=== PATIENT | male | born 1950 | race African-American/Black ===

== ENCOUNTER 2016-05-03 10:59 | Observation (INO) | payer OTHER ==
[2016-05-03] MEDS ORDERED: IPRATROPIUM/ALBUTEROL 0.5-2.5 MG/3 ML AMPUL NEB ONE (11:13)
[2016-05-03] MEDS ORDERED: PREDNISONE 20 MG TABLET PO ONE (11:13)
--- NOTE | 2016-05-03 11:15 | ER Document Report ---
ED Medical Screen (RME) - General Stated Complaint: DIFFICULTY BREATHING Mode of Arrival: Wheelchair Information source: Patient Notes: Patient complains of difficulty breathing shortness of breath for the past 5 days. Patient states he feels as though his capacity out. Patient reports subjective fever at home. hx: COPD, hypertension, diabetes I have greeted and performed a rapid initial assessment of this patient. A comprehensive ED assessment and evaluation of the patient, analysis of test results and completion of the medical decision making process will be conducted by additional ED providers. TRAVEL OUTSIDE OF THE [place] IN LAST 30 DAYS: No - Related Data Allergies/Adverse Reactions: No Known Allergies Allergy (Verified 05/03/16 11:12) Past Medical History - Past Medical History Cardiac Medical History: Reports: Hx Coronary Artery Disease, Hx Hypercholesterolemia, Hx Hypertension, Hx Heart Murmur Denies: Hx Heart Attack Pulmonary Medical History: Reports: Hx Bronchitis, Hx Pneumonia Denies: Hx Asthma, Hx COPD, Hx Tuberculosis Neurological Medical History: Reports: Hx Cerebrovascular Accident, Hx Migraine - neuropathy. Denies: Hx Seizures Endocrine Medical History: Reports: Hx Diabetes Mellitus Type 1, Hx Diabetes Mellitus Type 2 Renal/ Medical History: Reports: Hx Kidney Stones GI Medical History: Reports: Hx Gastroesophageal Reflux Disease, Hx Ulcer Musculoskeltal Medical History: Reports Hx Arthritis Psychiatric Medical History: Reports: Hx Depression Traumatic Medical History: Reports: Hx Fractures - Jaw Past Surgical History: Reports: Hx Orthopedic Surgery - 2 back surgeries, Hx Testicular Surgery - L testicle orchidectomy - Immunizations Immunizations up to date: Yes Hx Diphtheria, Pertussis, Tetanus Vaccination: Yes Physical Exam - Vital signs Vitals: Temp Pulse Resp BP Pulse Ox 97.9 F 87 24 H 150/86 H 94 05/03/16 11:04 05/03/16 11:04 05/03/16 11:04 05/03/16 11:04 05/03/16 11:04 - Respiratory Respiratory status: Labored - Slightly labored Breath sounds: Wheezing Course - Vital Signs Vital signs: Temp Pulse Resp BP Pulse Ox 97.9 F 87 24 H 150/86 H 94 05/03/16 11:04 05/03/16 11:04 05/03/16 11:04 05/03/16 11:04 05/03/16 11:04
[2016-05-03] MEDS: ALBUTEROL SULFATE 0.083% NEB 2.5 MG/3 ML AMPUL NEB SCH ×2 (11:39→12:21)
[2016-05-03 12:49] LABS: ABSOLUTE LYMPHOCYTES (AUTO) 0.5 10^3/uL (0.5-4.7); ABSOLUTE MONOCYTES (AUTO) 0.5 10^3/uL (0.1-1.4); ABSOLUTE NEUT (AUTO) 3.7 10^3/uL (1.7-8.2); BASOPHILS % (AUTO) 0.6 % (0-2); EOSINOPHILS % (AUTO) 18.1 % (0-6); HEMOGLOBIN 13.5 g/dL (13.5-17.0); HGB HCT DIFFERENCE -3.5; LYMPHOCYTES % (AUTO) 8.7 % (13-45); MEAN CORPUSCULAR HEMOGLOBIN 26.2 pg (27.0-33.4); MEAN CORPUSCULAR HGB CONC 30.6 g/dL (32.0-36.0); MEAN CORPUSCULAR VOLUME 86 fl (80-97); MONOCYTES % (AUTO) 7.9 % (3-13); RED BLOOD COUNT 5.14 10^6/uL (4.35-5.55); RED CELL DISTRIBUTION WIDTH 14.4 % (11.5-14.0); SEGMENTED NEUTROPHILS % (AUTO) 64.7 % (42-78); WHITE BLOOD COUNT 5.8 10^3/uL (4.0-10.5)
[2016-05-03 13:05] LABS: ALANINE AMINOTRANSFERASE 29 U/L (21-72); ALBUMIN 4.1 g/dL (3.5-5.0); ALKALINE PHOSPHATASE 108 U/L (38-126); ANION GAP 13 (5-19); ASPARTATE AMINO TRANSFERASE 28 U/L (17-59); BILIRUBIN,TOTAL 0.5 mg/dL (0.2-1.3); BLOOD UREA NITROGEN 12 mg/dL (7-20); CALCIUM 9.5 mg/dL (8.4-10.2); CARBON DIOXIDE 30 mmol/L (22-30); CHLORIDE 96 mmol/L (98-107); CREATINE KINASE 492 U/L (55-170); CREATININE RESULT 0.85 mg/dL (0.52-1.25); GLUCOSE 356 mg/dL (75-110); POTASSIUM 4.7 mmol/L (3.6-5.0); SODIUM 138.7 mmol/L (137-145); TOTAL PROTEIN 6.9 g/dL (6.3-8.2)
[2016-05-03 13:06] LABS: APPEARANCE,URINE CLEAR; BILIRUBIN,URINE NEGATIVE (NEGATIVE); GLUCOSE, URINE >=500 mg/dL (NEGATIVE); KETONES,URINE NEGATIVE (NEGATIVE); LEUKOCYTE ESTERASE,URINE NEGATIVE (NEGATIVE); NITRITE,URINE NEGATIVE (NEGATIVE); PROTEIN,URINE NEGATIVE (NEGATIVE); URINE SPECIFIC GRAVITY 1.024; UROBILINOGEN,URINE NEGATIVE mg/dL (<2.0)
[2016-05-03 13:17] LABS: CREATINE KINASE MB 0.84 ng/mL (<4.55)
[2016-05-03 13:26] LABS: TROPONIN I < 0.012 ng/mL
[2016-05-03] MEDS ORDERED: ALBUTEROL SULFATE 0.083% NEB 2.5 MG/3 ML AMPUL NEB ONE ×3 (14:32→14:33)
--- NOTE | 2016-05-03 14:32 | ER Document Report ---
ED General - General Chief Complaint: Breathing Difficulty Stated Complaint: DIFFICULTY BREATHING Mode of Arrival: Wheelchair Information source: Patient Notes: 66-year-old male history of bronchitis presents with complaints of shortness of breath and cough over the past 5 days. Patient notes a nonproductive, notes significant respiratory difficulty and that his chest wall hurts when he coughs TRAVEL OUTSIDE OF THE [place] IN LAST 30 DAYS: No - HPI Onset: Last week Onset/Duration: Persistent Quality of pain: Sharp Severity: Mild Pain Level: 2 Associated symptoms: Body/muscle aches, Chest pain, Nonproductive cough, Shortness of breath Exacerbated by: Denies Relieved by: Denies Similar symptoms previously: Yes Recently seen / treated by doctor: Yes - Related Data Allergies/Adverse Reactions: No Known Allergies Allergy (Verified 05/03/16 11:12) Past Medical History - General Information source: Patient - Social History Smoking Status: Never Smoker Cigarette use (# per day): No Chew tobacco use (# tins/day): No Smoking Education Provided: No Frequency of alcohol use: None Drug Abuse: None Family History: Reviewed & Not Pertinent Patient has suicidal ideation: No Patient has homicidal ideation: No - Past Medical History Cardiac Medical History: Reports: Hx Coronary Artery Disease, Hx Hypercholesterolemia, Hx Hypertension, Hx Heart Murmur Denies: Hx Heart Attack Pulmonary Medical History: Reports: Hx Bronchitis, Hx Pneumonia Denies: Hx Asthma, Hx COPD, Hx Tuberculosis Neurological Medical History: Reports: Hx Cerebrovascular Accident, Hx Migraine - neuropathy. Denies: Hx Seizures Endocrine Medical History: Reports: Hx Diabetes Mellitus Type 1, Hx Diabetes Mellitus Type 2 Renal/ Medical History: Reports: Hx Kidney Stones. Denies: Hx Peritoneal Dialysis GI Medical History: Reports: Hx Gastroesophageal Reflux Disease, Hx Ulcer Musculoskeltal Medical History: Reports Hx Arthritis Psychiatric Medical History: Reports: Hx Depression Traumatic Medical History: Reports: Hx Fractures - Jaw Past Surgical History: Reports: Hx Orthopedic Surgery - 2 back surgeries, Hx Testicular Surgery - L testicle orchidectomy - Immunizations Immunizations up to date: Yes Hx Diphtheria, Pertussis, Tetanus Vaccination: Yes Hx Pneumococcal Vaccination: 04/20/11 Review of Systems - Review of Systems Notes: REVIEW OF SYSTEMS: CONSTITUTIONAL : Denies fever, chills, or sweats. Denies recent illness. EENT: Denies eye, ear, throat, or mouth pain or symptoms. Denies nasal or sinus congestion or discharge. Denies throat, tongue, or mouth swelling or difficulty swallowing. CARDIOVASCULAR: Denies chest pain. Denies palpitations or racing or irregular heart beat. Denies ankle edema. RESPIRATORY: Admits to difficulty breathing GASTROINTESTINAL: Denies abdominal pain or distention. Denies nausea, vomiting , or diarrhea. Denies blood in vomitus, stools, or per rectum. Denies black, tarry stools. Denies constipation. GENITOURINARY: Denies difficulty urinating, painful urination, burning, frequency, blood in urine, or discharge. MUSCULOSKELETAL: Denies back or neck pain or stiffness. Denies joint pain or swelling. SKIN: Denies rash, lesions or sores. HEMATOLOGIC : Denies easy bruising or bleeding. LYMPHATIC: Denies swollen, enlarged glands. NEUROLOGICAL: Denies confusion or altered mental status. Denies passing out or loss of consciousness. Denies dizziness or lightheadedness. Denies headache. Denies weakness or paralysis or loss of use of either side. Denies problems with gait or speech. Denies sensory loss, numbness, or tingling. Denies seizures. PSYCHIATRIC: Denies anxiety or stress. Denies depression, suicidal ideation, or homicidal ideation. ALL OTHER SYSTEMS REVIEWED AND NEGATIVE. Dictation was performed using [employer] voice recognition software PHYSICAL EXAMINATION: GENERAL: Well-appearing, well-nourished and in moderate respiratory distress. HEAD: Atraumatic, normocephalic. EYES: Pupils equal round and reactive to light, extraocular movements intact, sclera anicteric, conjunctiva are normal. ENT: Nares patent, oropharynx clear without exudates. Moist mucous membranes. NECK: Normal range of motion, supple without lymphadenopathy LUNGS: Very coarse rhonchi, moderate respiratory distress HEART: Regular rate and rhythm without murmurs ABDOMEN: Soft, nontender, nondistended abdomen. No guarding, no rebound. No masses appreciated. Musculoskeletal: Normal range of motion, no pitting or edema. No cyanosis. NEUROLOGICAL: Cranial nerves grossly intact. Normal speech, normal gait. Normal sensory, motor exams PSYCH: Normal mood, normal affect. SKIN: Warm, Dry, normal turgor, no rashes or lesions noted. Physical Exam - Vital signs Vitals: Temp Pulse Resp BP Pulse Ox 97.9 F 87 24 H 150/86 H 94 05/03/16 11:04 05/03/16 11:04 05/03/16 11:04 05/03/16 11:04 05/03/16 11:04 Course - Re-evaluation Re-evalutation: 05/03/16 14:36 pt on evaluated after 3 duo nebs still having significant respiratroy distress, sating 90% at rest, 05/03/16 14:39 Patient will be admitted to hospital service for further duo nebs and monitoring - Vital Signs Vital signs: Temp Pulse Resp BP Pulse Ox 98.7 F 84 20 162/95 H 94 05/03/16 13:39 05/03/16 13:39 05/03/16 13:39 05/03/16 13:39 05/03/16 13:39 - Laboratory Result Diagrams: 05/03/16 12:15 05/03/16 12:15 Laboratory results interpreted by me: 05/03/16 05/03/16 05/03/16 12:15 12:15 12:50 MCH 26.2 L MCHC 30.6 L RDW 14.4 H Lymphocytes % 8.7 L Eosinophils % 18.1 H Absolute Eosinophils 1.0 H Chloride 96 L Glucose 356 H Creatine Kinase 492 H Urine Glucose (UA) >=500 H - Diagnostic Test Radiology reviewed: Image reviewed, Reports reviewed Discharge - Discharge Clinical Impression: HTN (hypertension) COPD (chronic obstructive pulmonary disease) Qualifiers: COPD type: unspecified COPD Qualified Code(s): J44.9 - Chronic obstructive pulmonary disease, unspecified Diabetes Qualifiers: Diabetes mellitus type: type 2 Chronic kidney disease stage: unspecified stage Condition: Stable Disposition: ADMITTED INPATIENT Admitting Provider: Hospitalist Unit Admitted: Telemetry
[2016-05-03 15:02] LABS: URINE BARBITURATES SCREEN NEGATIVE; URINE METHADONE SCREEN NEGATIVE; URINE PHENCYCLIDINE SCREEN NEGATIVE
--- NOTE | 2016-05-03 16:33 | EKG REPORT ---
SEVERITY:- ABNORMAL ECG - SINUS RHYTHM PROBABLE LEFT VENTRICULAR HYPERTROPHY : Confirmed by: Kostas Godinez MD 03-May-2016 16:31:36
[2016-05-03] MEDS ORDERED: LORATADINE 10 MG TABLET PO PRN (17:18)
[2016-05-03] MEDS ORDERED: NAPHAZOLINE HCL OU PRN (17:18)
--- NOTE | 2016-05-03 17:28 | PDOC H&P ---
History of Present Illness Admission Date/PCP: 05/03/16 14:46 [facility] Patient complains of: shortness of breath and cough History of Present Illness: MARIA DEL CARMEN MCNEILL is a 66 year old male Past Medical History Cardiac Medical History: Reports: Coronary Artery Disease, Hyperlipidema, Hypertension, Heart Murmur, Other - CVA Denies: Myocardial Infarction Pulmonary Medical History: Reports: Bronchitis, Pneumonia Denies: Asthma, Chronic Obstructive Pulmonary Disease (COPD), Tuberculosis Neurological Medical History: Reports: Migraine - neuropathy Denies: Seizures Endocrine Medical History: Reports: Diabetes Mellitus Type 1 GI Medical History: Reports: Gastroesophageal Reflux Disease Musculoskeltal Medical History: Reports: Arthritis Psychiatric Medical History: Reports: Depression Hematology: Denies: Anemia Past Surgical History Past Surgical History: Reports: Orthopedic Surgery - 2 back surgeries, Other - 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 Social History Smoking Status: Never Smoker Frequency of Alcohol Use: None Hx Recreational Drug Use: Yes Drugs: Cocaine Hx Prescription Drug Abuse: No - Advance Directive Resuscitation Status: Full Code Surrogate healthcare decision maker:: Yamini Family History Family History: Reviewed & Not Pertinent Parental Family History Reviewed: Yes - Diabetes hypertension Children Family History Reviewed: No Sibling(s) Family History Reviewed.: No Medication/Allergy Home Medications: Albuterol Sulfate 2.5 mg NEB RTQIDP PRN 05/03/16 Albuterol Sulfate [Ventolin Hfa] 2 puff IH Q6HP PRN 05/03/16 Amlodipine Besylate [Norvasc 10 mg Tablet] 10 mg PO DAILY 05/03/16 Aspirin [Aspirin EC] 81 mg PO DAILY 05/03/16 Fluoxetine HCl [Prozac 20 mg Capsule] 20 mg PO DAILY 05/03/16 Hydrochlorothiazide 25 mg PO QAM 05/03/16 Insulin Glargine,Hum.rec.anlog [Lantus Insulin 100 Unit/1 ml 10 ml] 40 units SQ QHS 05/03/16 Lisinopril [Prinivil 40 mg Tablet] 40 mg PO DAILY 05/03/16 Loratadine [Claritin 10 mg Tablet] 10 mg PO DAILYP PRN 05/03/16 Methocarbamol [Robaxin 750 mg Tablet] 750 mg PO Q8 05/03/16 Metoprolol Tartrate [Lopressor 100 mg Tablet] 100 mg PO Q12 05/03/16 Multivitamin [Daily Multiple Vitamin] 1 tab PO DAILY 05/03/16 Naphazoline HCl [Clear Eyes] 1 drop OU PRN PRN 05/03/16 Simvastatin [Zocor 40 mg Tablet] 40 mg PO QHS 05/03/16 Tramadol HCl [Ultram 50 mg Tablet] 50 mg PO Q4HP PRN 05/03/16 Allergies/Adverse Reactions: No Known Allergies Allergy (Verified 05/03/16 11:12) Review of Systems Constitutional: ABSENT: chills, fever(s), headache(s), weight gain, weight loss Eyes: ABSENT: visual disturbances Ears: ABSENT: hearing changes Cardiovascular: ABSENT: chest pain, dyspnea on exertion, edema, orthropnea, palpitations Respiratory: PRESENT: as per HPI, cough, dyspnea, sputum. ABSENT: hemoptysis Gastrointestinal: ABSENT: abdominal pain, constipation, diarrhea, hematemesis, hematochezia, nausea, vomiting Genitourinary: ABSENT: dysuria, hematuria Musculoskeletal: ABSENT: joint swelling Integumentary: ABSENT: rash, wounds Neurological: ABSENT: abnormal gait, abnormal speech, confusion, dizziness, focal weakness, syncope Psychiatric: ABSENT: anxiety, depression, homidical ideation, suicidal ideation Endocrine: ABSENT: cold intolerance, heat intolerance, polydipsia, polyuria Hematologic/Lymphatic: ABSENT: easy bleeding, easy bruising Physical Exam Vital Signs: Temp Pulse Resp BP Pulse Ox 97.5 F 82 20 148/88 H 97 05/03/16 16:35 05/03/16 16:35 05/03/16 16:35 05/03/16 16:35 05/03/16 16:35 Intake & Output 05/02/16 05/03/16 05/04/16 00:59 00:59 00:59 Weight 77.4 kg General appearance: PRESENT: no acute distress, well-developed, well-nourished Head exam: PRESENT: atraumatic, normocephalic Eye exam: PRESENT: conjunctiva pink, EOMI, PERRLA. ABSENT: scleral icterus Ear exam: PRESENT: normal external ear exam Mouth exam: PRESENT: moist, tongue midline Neck exam: ABSENT: carotid bruit, JVD, lymphadenopathy, thyromegaly Respiratory exam: PRESENT: chest wall tenderness, rhonchi, tachypnea, wheezes - bilaterally. ABSENT: accessory muscle use, crackles, rales, retraction Cardiovascular exam: PRESENT: RRR. ABSENT: diastolic murmur, rubs, systolic murmur Pulses: PRESENT: normal dorsalis pedis pul Vascular exam: PRESENT: normal capillary refill GI/Abdominal exam: PRESENT: normal bowel sounds, soft. ABSENT: distended, guarding, mass, organolmegaly, rebound, tenderness Rectal exam: PRESENT: deferred Extremities exam: PRESENT: full ROM. ABSENT: calf tenderness, clubbing, pedal edema Neurological exam: PRESENT: alert, awake, oriented to person, oriented to place , oriented to time, oriented to situation, CN II-XII grossly intact. ABSENT: motor sensory deficit Psychiatric exam: PRESENT: appropriate affect, normal mood. ABSENT: homicidal ideation, suicidal ideation Skin exam: PRESENT: dry, intact, warm. ABSENT: cyanosis, rash Results Laboratory Results: 05/03/16 05/03/16 05/03/16 12:15 12:15 12:50 MCH 26.2 L MCHC 30.6 L RDW 14.4 H Lymphocytes % 8.7 L Eosinophils % 18.1 H Absolute Eosinophils 1.0 H Chloride 96 L Glucose 356 H Creatine Kinase 492 H Urine Glucose (UA) >=500 H Impressions: Chest X-Ray 05/03/16 11:14 IMPRESSION: NO SIGNIFICANT RADIOGRAPHIC FINDING IN THE CHEST. 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-way use Chronic kidney disease stage: unspecified stage Is this a current diagnosis for this admission?: YesPlan: increase lantus continue lispro coverage ACHS (3) HTN (hypertension) Plan: continue present management - Time Time Spent: 50 to 70 Minutes - Inpatient Certification Based on my medical assessment, after consideration of the patient's comorbidities, presenting symptoms, or acuity I expect that the services needed warrant INPATIENT care.: Yes I certify that my determination is in accordance with my understanding of Medicare's requirements for reasonable and necessary INPATIENT services [42 CFR 412.3e].: Yes Medical Necessity: Need Close Monitoring Due to Risk of Patient Decompensation, Need for Nebulizer Therapy and Monitoring of Response, Need for IV Antibiotics
[2016-05-03] MEDS ORDERED: DEXTROSE 50%-WATER 25 GM/50 ML DISP.SYRIN IV PRN ×2 (17:36)
[2016-05-03] MEDS ORDERED: DEXTROSE 40% GEL 15 GM TUBE PO PRN ×2 (17:36)
[2016-05-03] MEDS ORDERED: GLUCAGON,HUMAN RECOMB 1 MG INJ IM PRN (17:36)
[2016-05-03] MEDS ORDERED: FLUOXETINE HCL 20 MG CAPSULE PO ONE (18:30)
[2016-05-03] MEDS ORDERED: LISINOPRIL 10 MG TABLET PO ONE (18:30)
[2016-05-03] MEDS: TRAMADOL HCL 50 MG TABLET PO PRN (18:41)
[2016-05-03] MEDS: INSULIN LISPRO 100 UNIT/ML 3 ML VIAL SUBCUT PRN ×2 (18:42→21:27)
[2016-05-03] MEDS ORDERED: AMLODIPINE BESYLATE 10 MG TABLET PO ONE (18:45)
[2016-05-03] MEDS ORDERED: ASPIRIN 81 MG TABLET, ENT COATED PO ONE (18:45)
[2016-05-03] MEDS ORDERED: BENZONATATE 100 MG CAPSULE PO ONE (18:45)
[2016-05-03] MEDS ORDERED: INFLUENZA ADLT QUAD (36MOS+) 2016-17 VAC 0.5 ML SYR IM PRN (19:29)
[2016-05-03] MEDS ORDERED: IPRATROPIUM/ALBUTEROL 0.5-2.5 MG/3 ML AMPUL NEB SCH (20:00)
[2016-05-03] MEDS: METHOCARBAMOL 750 MG TABLET PO SCH (21:25)
[2016-05-03] MEDS: FAMOTIDINE 20 MG TABLET PO SCH (21:25)
[2016-05-03] MEDS: SIMVASTATIN 40 MG TABLET PO SCH (21:26)
[2016-05-03] MEDS: BENZONATATE 100 MG CAPSULE PO SCH (21:26)
[2016-05-03] MEDS: METOPROLOL TARTRATE 100 MG TABLET PO SCH (21:27)
[2016-05-03] MEDS ORDERED: INSULIN GLARGINE,HUM.REC.ANLOG 1,000 UNIT/10 ML UNIT SUBCUT SCH (22:00)
[2016-05-03] MEDS ORDERED: INSULIN GLARGINE,HUM.REC.ANLOG 300 UNIT/3 ML INSULN.PEN SUBCUT SCH (22:00)
[2016-05-04] MEDS: IPRATROPIUM/ALBUTEROL 0.5-2.5 MG/3 ML AMPUL NEB SCH ×4 (02:05→19:31)
[2016-05-04] MEDS: METHOCARBAMOL 750 MG TABLET PO SCH ×3 (05:45→21:43)
[2016-05-04] MEDS: BENZONATATE 100 MG CAPSULE PO SCH ×3 (05:45→21:52)
[2016-05-04 06:04] LABS: ABSOLUTE EOSINOPHILS # (AUTO) 0.2 10^3/uL (0.0-0.6); ABSOLUTE MONOCYTES (AUTO) 1.1 10^3/uL (0.1-1.4); BASOPHILS % (AUTO) 0.4 % (0-2); EOSINOPHILS % (AUTO) 2.9 % (0-6); HEMATOCRIT 41.8 % (37.9-51.0); HEMOGLOBIN 13.7 g/dL (13.5-17.0); HGB HCT DIFFERENCE -0.7; LYMPHOCYTES % (AUTO) 12.5 % (13-45); MEAN CORPUSCULAR HEMOGLOBIN 27.2 pg (27.0-33.4); MEAN CORPUSCULAR HGB CONC 32.7 g/dL (32.0-36.0); MEAN CORPUSCULAR VOLUME 83 fl (80-97); MONOCYTES % (AUTO) 12.6 % (3-13); RED BLOOD COUNT 5.03 10^6/uL (4.35-5.55); RED CELL DISTRIBUTION WIDTH 14.3 % (11.5-14.0); SEGMENTED NEUTROPHILS % (AUTO) 71.6 % (42-78); WHITE BLOOD COUNT 8.4 10^3/uL (4.0-10.5)
[2016-05-04 06:24] LABS: ALANINE AMINOTRANSFERASE 34 U/L (21-72); ALBUMIN 3.9 g/dL (3.5-5.0); ALKALINE PHOSPHATASE 86 U/L (38-126); ANION GAP 9 (5-19); ASPARTATE AMINO TRANSFERASE 34 U/L (17-59); BILIRUBIN,TOTAL 0.5 mg/dL (0.2-1.3); BLOOD UREA NITROGEN 18 mg/dL (7-20); CALCIUM 9.9 mg/dL (8.4-10.2); CARBON DIOXIDE 30 mmol/L (22-30); CHLORIDE 100 mmol/L (98-107); CHOLESTEROL 152.09 mg/dL (0-200); CREATININE RESULT 0.91 mg/dL (0.52-1.25); Direct HDL 49 mg/dL (>40); GLUCOSE 63 mg/dL (75-110); POTASSIUM 4.2 mmol/L (3.6-5.0); SODIUM 139.2 mmol/L (137-145); TOTAL PROTEIN 6.9 g/dL (6.3-8.2); TRIGLYCERIDES 69 mg/dL (<150)
[2016-05-04 06:35] LABS: DIRECT LDL 90 mg/dL (<100)
[2016-05-04] MEDS: NORMAL SALINE 1000 ML 1,000 ML IV PRN ×2 (08:49→21:42)
[2016-05-04] MEDS: HYDROCHLOROTHIAZIDE 25 MG TABLET PO SCH (08:55)
[2016-05-04] MEDS: ENOXAPARIN SODIUM INJ 40 MG/0.4 ML DISP.SYRIN SUBCUT SCH (08:56)
[2016-05-04] MEDS: METOPROLOL TARTRATE 100 MG TABLET PO SCH ×2 (09:03→21:44)
[2016-05-04] MEDS: PREDNISONE 20 MG TABLET PO SCH (09:03)
[2016-05-04] MEDS: MULTIVITAMIN TABLET PO SCH (09:04)
[2016-05-04] MEDS: LISINOPRIL 10 MG TABLET PO SCH (09:04)
[2016-05-04] MEDS: FAMOTIDINE 20 MG TABLET PO SCH ×2 (09:04→21:43)
[2016-05-04] MEDS: FLUOXETINE HCL 20 MG CAPSULE PO SCH (09:04)
[2016-05-04] MEDS: ASPIRIN 81 MG TABLET, ENT COATED PO SCH (09:04)
[2016-05-04] MEDS: AMLODIPINE BESYLATE 10 MG TABLET PO SCH (09:08)
[2016-05-04] MEDS: TRAMADOL HCL 50 MG TABLET PO PRN ×2 (09:09→18:48)
[2016-05-04] MEDS ORDERED: INSULIN GLARGINE,HUM.REC.ANLOG 300 UNIT/3 ML INSULN.PEN SUBCUT SCH ×2 (10:00→22:00)
[2016-05-04] MEDS ORDERED: ACETYLCYSTEINE 20% SOLN 800 MG/4 ML VIAL.NEB NEB PRN (10:18)
[2016-05-04 11:05] LABS: FREE T3 3.57 pg/mL (2.77-5.27)
[2016-05-04] MEDS: GUAIFENESIN 600 MG TABLET.SA PO SCH ×2 (14:18→21:43)
--- NOTE | 2016-05-04 16:22 | PDOC PROGRESS REPORT ---
Subjective Progress Note for:: 05/04/16 Subjective:: Patient feels better No fever no chills no pleuritic chest pain Cough is somewhat improved but still persistent Physical Exam Vital Signs: Temp Pulse Resp BP Pulse Ox 97.5 F 68 16 124/79 96 05/04/16 08:41 05/04/16 13:45 05/04/16 13:45 05/04/16 08:41 05/04/16 13:45 Intake & Output 05/03/16 05/04/16 05/05/16 00:59 00:59 00:59 Intake Total 1125 Output Total 2 Balance 1123 Weight 77.6 kg General appearance: PRESENT: no acute distress, well-developed, well-nourished Head exam: PRESENT: atraumatic, normocephalic Eye exam: PRESENT: conjunctiva pink, EOMI, PERRLA. ABSENT: scleral icterus Ear exam: PRESENT: normal external ear exam Mouth exam: PRESENT: moist, tongue midline Neck exam: ABSENT: carotid bruit, JVD, lymphadenopathy, thyromegaly Respiratory exam: PRESENT: rhonchi, wheezes - Bilaterally. ABSENT: rales Cardiovascular exam: PRESENT: RRR. ABSENT: diastolic murmur, rubs, systolic murmur Pulses: PRESENT: normal dorsalis pedis pul Vascular exam: PRESENT: normal capillary refill GI/Abdominal exam: PRESENT: normal bowel sounds, soft. ABSENT: distended, guarding, mass, organolmegaly, rebound, tenderness Rectal exam: PRESENT: deferred Extremities exam: PRESENT: full ROM. ABSENT: calf tenderness, clubbing, pedal edema Neurological exam: PRESENT: alert, awake, oriented to person, oriented to place , oriented to time, oriented to situation, CN II-XII grossly intact. ABSENT: motor sensory deficit Psychiatric exam: PRESENT: appropriate affect, normal mood. ABSENT: homicidal ideation, suicidal ideation Skin exam: PRESENT: dry, intact, warm. ABSENT: cyanosis, rash Results Laboratory Results: 05/04/16 05:42 05/04/16 05:42 05/04/16 05/04/16 05/04/16 05:42 05:42 05:42 WBC 8.4 RBC 5.03 Hgb 13.7 Hct 41.8 MCV 83 MCH 27.2 MCHC 32.7 RDW 14.3 H Plt Count 213 Seg Neutrophils % 71.6 Lymphocytes % 12.5 L Monocytes % 12.6 Eosinophils % 2.9 Basophils % 0.4 Absolute Neutrophils 6.0 Absolute Lymphocytes 1.0 Absolute Monocytes 1.1 Absolute Eosinophils 0.2 Absolute Basophils 0.0 Sodium 139.2 Potassium 4.2 Chloride 100 Carbon Dioxide 30 Anion Gap 9 BUN 18 Creatinine 0.91 Est GFR ( Amer) > 60 Est GFR (Non-Af Amer) > 60 Glucose 63 L Calcium 9.9 Total Bilirubin 0.5 AST 34 ALT 34 Alkaline Phosphatase 86 Total Protein 6.9 Albumin 3.9 Triglycerides 69 Cholesterol 152.09 LDL Cholesterol Direct 90 VLDL Cholesterol 14.0 HDL Cholesterol 49 TSH 0.31 L Free T4 Free T3 pg/mL 05/04/16 05:42 WBC RBC Hgb Hct MCV MCH MCHC RDW Plt Count Seg Neutrophils % Lymphocytes % Monocytes % Eosinophils % Basophils % Absolute Neutrophils Absolute Lymphocytes Absolute Monocytes Absolute Eosinophils Absolute Basophils Sodium Potassium Chloride Carbon Dioxide Anion Gap BUN Creatinine Est GFR ( Amer) Est GFR (Non-Af Amer) Glucose Calcium Total Bilirubin AST ALT Alkaline Phosphatase Total Protein Albumin Triglycerides Cholesterol LDL Cholesterol Direct VLDL Cholesterol HDL Cholesterol TSH Free T4 1.19 Free T3 pg/mL 3.57 05/04/16 05:42 NT-Pro-B Natriuret Pep 199 05/03/16 05/03/16 05/04/16 17:58 20:55 05:42 Glucose 63 L POC Glucose 254 H 310 H 05/04/16 05/04/16 06:35 12:16 Glucose POC Glucose 68 L 83 Impressions: Chest X-Ray 05/03/16 11:14 IMPRESSION: NO SIGNIFICANT RADIOGRAPHIC FINDING IN THE CHEST. Assessment & Plan - Diagnosis (1) Asthmatic bronchitis with acute exacerbation Is this a current diagnosis for this admission?: Yes (2) Diabetes Qualifiers: Diabetes mellitus type: type 2 Diabetes mellitus intermediate insulin use : with intermediate use Chronic kidney disease stage: unspecified stage Is this a current diagnosis for this admission?: Yes - Time Time Spent with patient: We'll continue present management Changed Lantus insulin to every 12 hours: 25 units every morning and 20 units every afternoon as patient has low readings sole skiver, and is hypoglycemic towards the evening Patient had pulse oximetry checked on room air with ambulation and it remained at 98% He is not a candidate for supplemental O2, and his admission was changed to observation Patient likely will be discharged in a.m. as he is already improving Time Spent with patient: 25-34 minutes Within: within 24 hours
[2016-05-04] MEDS: ACETYLCYSTEINE 20% SOLN 800 MG/4 ML VIAL.NEB NEB SCH (20:11)
[2016-05-04] MEDS: SIMVASTATIN 40 MG TABLET PO SCH (21:43)
[2016-05-04] MEDS: LEVOFLOXACIN 750 MG/D5W RTU 750 MG/150 ML RTUPB IV SCH (21:45)
[2016-05-05] MEDS: IPRATROPIUM/ALBUTEROL 0.5-2.5 MG/3 ML AMPUL NEB SCH ×4 (02:05→19:31)
[2016-05-05] MEDS: METHOCARBAMOL 750 MG TABLET PO SCH ×3 (05:31→22:03)
[2016-05-05] MEDS: BENZONATATE 100 MG CAPSULE PO SCH ×3 (05:31→22:03)
[2016-05-05] MEDS: ACETYLCYSTEINE 20% SOLN 800 MG/4 ML VIAL.NEB NEB SCH ×2 (07:51→19:32)
[2016-05-05] MEDS: INSULIN LISPRO 100 UNIT/ML 3 ML VIAL SUBCUT PRN ×3 (07:52→22:21)
[2016-05-05] MEDS: ENOXAPARIN SODIUM INJ 40 MG/0.4 ML DISP.SYRIN SUBCUT SCH (07:53)
[2016-05-05] MEDS: HYDROCHLOROTHIAZIDE 25 MG TABLET PO SCH (07:53)
[2016-05-05] MEDS ORDERED: TETRAHYDROZOLINE HCL 0.05% OPH SOLN 15 ML OU PRN (08:37)
[2016-05-05] MEDS: AMLODIPINE BESYLATE 10 MG TABLET PO SCH (10:20)
[2016-05-05] MEDS: FLUOXETINE HCL 20 MG CAPSULE PO SCH (10:20)
[2016-05-05] MEDS: PREDNISONE 20 MG TABLET PO SCH (10:20)
[2016-05-05] MEDS: FAMOTIDINE 20 MG TABLET PO SCH ×2 (10:20→22:02)
[2016-05-05] MEDS: ASPIRIN 81 MG TABLET, ENT COATED PO SCH (10:21)
[2016-05-05] MEDS: GUAIFENESIN 600 MG TABLET.SA PO SCH ×2 (10:21→22:02)
[2016-05-05] MEDS: MULTIVITAMIN TABLET PO SCH (10:21)
[2016-05-05] MEDS: LISINOPRIL 10 MG TABLET PO SCH (10:21)
[2016-05-05] MEDS: METOPROLOL TARTRATE 100 MG TABLET PO SCH ×2 (10:21→22:02)
[2016-05-05] MEDS: INSULIN GLARGINE,HUM.REC.ANLOG 300 UNIT/3 ML INSULN.PEN SUBCUT SCH (10:25)
--- NOTE | 2016-05-05 11:24 | PDOC PROGRESS REPORT ---
Subjective Progress Note for:: 05/05/16 Subjective:: Patient is doing a lot better he is still wheezing but the chest congestion has improved He is able to mobilize secretions much better Physical Exam Vital Signs: Temp Pulse Resp BP Pulse Ox 97.8 F 71 16 134/83 H 97 05/05/16 08:15 05/05/16 08:15 05/05/16 08:15 05/05/16 08:15 05/05/16 08:15 Intake & Output 05/04/16 05/05/16 05/06/16 00:59 00:59 00:59 Intake Total 2275 975 Output Total 302 300 Balance 1973 675 Weight 77.4 kg 77.6 kg 77.8 kg General appearance: PRESENT: no acute distress, well-developed, well-nourished Head exam: PRESENT: atraumatic, normocephalic Eye exam: PRESENT: conjunctiva pink, EOMI, PERRLA. ABSENT: scleral icterus Ear exam: PRESENT: normal external ear exam Mouth exam: PRESENT: moist, tongue midline Neck exam: ABSENT: carotid bruit, JVD, lymphadenopathy, thyromegaly Respiratory exam: PRESENT: clear to auscultation lauren, wheezes - scattered bilaterally. ABSENT: rales, rhonchi Cardiovascular exam: PRESENT: RRR. ABSENT: diastolic murmur, rubs, systolic murmur Pulses: PRESENT: normal dorsalis pedis pul Vascular exam: PRESENT: normal capillary refill GI/Abdominal exam: PRESENT: normal bowel sounds, soft. ABSENT: distended, guarding, mass, organolmegaly, rebound, tenderness Rectal exam: PRESENT: deferred Extremities exam: PRESENT: full ROM. ABSENT: calf tenderness, clubbing, pedal edema Neurological exam: PRESENT: alert, awake, oriented to person, oriented to place , oriented to time, oriented to situation, CN II-XII grossly intact. ABSENT: motor sensory deficit Psychiatric exam: PRESENT: appropriate affect, normal mood. ABSENT: homicidal ideation, suicidal ideation Skin exam: PRESENT: dry, intact, warm. ABSENT: cyanosis, rash Results Laboratory Results: 05/04/16 05:42 05/04/16 05:42 05/04/16 05:42 NT-Pro-B Natriuret Pep 199 Impressions: Chest X-Ray 05/03/16 11:14 IMPRESSION: NO SIGNIFICANT RADIOGRAPHIC FINDING IN THE CHEST. Assessment & Plan - Diagnosis (1) Asthmatic bronchitis with acute exacerbation Is this a current diagnosis for this admission?: Yes (2) Diabetes Qualifiers: Diabetes mellitus type: type 2 Diabetes mellitus skilled nursing insulin use : with skilled nursing use Chronic kidney disease stage: unspecified stage Is this a current diagnosis for this admission?: Yes - Time Time Spent with patient: will keep patient another 24 hours will d/c IV fluids Time Spent with patient: 25-34 minutes
[2016-05-05] MEDS ORDERED: INSULIN GLARGINE,HUM.REC.ANLOG 300 UNIT/3 ML INSULN.PEN SUBCUT SCH (11:30)
[2016-05-05] MEDS: TRAMADOL HCL 50 MG TABLET PO PRN (16:10)
[2016-05-05] MEDS: LEVOFLOXACIN 750 MG/D5W RTU 750 MG/150 ML RTUPB IV SCH (22:03)
[2016-05-05] MEDS: SIMVASTATIN 40 MG TABLET PO SCH (22:03)
[2016-05-06] MEDS: IPRATROPIUM/ALBUTEROL 0.5-2.5 MG/3 ML AMPUL NEB SCH ×2 (02:26→07:39)
[2016-05-06] MEDS: BENZONATATE 100 MG CAPSULE PO SCH (05:36)
[2016-05-06] MEDS: METHOCARBAMOL 750 MG TABLET PO SCH (05:36)
[2016-05-06] MEDS: ACETYLCYSTEINE 20% SOLN 800 MG/4 ML VIAL.NEB NEB SCH (07:40)
[2016-05-06] MEDS: ENOXAPARIN SODIUM INJ 40 MG/0.4 ML DISP.SYRIN SUBCUT SCH (07:59)
[2016-05-06] MEDS: INSULIN GLARGINE,HUM.REC.ANLOG 300 UNIT/3 ML INSULN.PEN SUBCUT SCH (07:59)
[2016-05-06] MEDS: HYDROCHLOROTHIAZIDE 25 MG TABLET PO SCH (08:42)
--- NOTE | 2016-05-06 09:57 | Physician Advisory Note ---
Physician Advisor ProgressNote .: Pursuant to the plan for [facility], I have reviewed the medical record for this patient. Physician Advisor Statement: Possible documentation opportunities if attending agrees: 1. ""Medical necessity: see below. If attending documents how far off pt was from baseline on each day, explicitly stating why pt was not sufficiently improved for safe d/c - for each day pt here - then attending could change order to Inpt today, prior to d/c, & Inpt status could be supported. However, if documentation continues to only state things like "cough/wheezing ", "NAD", & "improving" without the above - with initial H&P simply stating " SOB & cough, ... no retrac.s...", then status should remain Outpt Obs. 2. DM: type 1 or 2? [H&P states DM-1, prog note states DM-2.] Status: Acute bronchitis without Ac Resp Failure or other complicating factors is typically an Outpt or Outpt Obs status to start; pt has to prove they don't quickly get back to baseline with a few hrs of tx. This pt came in w/labored breathing [documented by nursing, not yet by attending ], wheezes, tachypnea, nonproductive cough, "respiratory effort = SOB", (+) wheezing present after 3 breathing tx's, SOB w/movement" per ED nursing assessment. He was having continued difficulty breathing, and on 05/04, attending felt that, although pt was improving, pt needed continued hospital level tx & monitoring for at least a 2nd MN. Reading between the lines, this reviewer suspects this pt was indeed sick enough to need ongoing Inpt care & monitoring for as long as this attending ordered, but auditors will not read between the lines, & if "how bad off pt is" on each day is not emphasized in documentation, they will not support Inpt care. Indeed, EHR reviewer on 05/04 AM believed Outpt Obs status was most appropriate. However, this attending is a very experienced and perceptive physician who does not keep pts in hospital for issues that can be handled outpt. Even though progress note on 05/04 stated pt "improving", this attending strongly felt on that pt should be Inpt status due to ongoing "difficulty breathing" per note. This is supported by nursing documentation on 05/04 PM at 19:51: "RR22 & labored" (information not available to EHR reviewer on 05/04 AM). A pt with persistent or recurrent labored breathing is appropriate for Inpt status. If attending documents how different pt was from their baseline each day, this reviewer believes Inpatient status could be supported in this case. [Stating pt has rhonchi & wheezes isn't enough for Inpt, as many pts with these findings can be managed outpt, & a number of pts have wheezing at baseline. Stating pt has SOB isn't sufficient, as some pts feel SOB when clinically they just are anxious, & otherwise well. When notes simply state pt is improving, & NAD, +/- cough/wheeze, & pt not needing O2 or IVF, then it sounds to a non-involved reviewer that pt must be ready for d/c. Documenting (when this is true) that pt is still having difficulty breathing significantly > their baseline, that you are concerned for risks of further decompensation (specifics wherever possible, such as risks of developing into Ac Resp Failure) if sent home that day - this is the sort of documentation that will support keeping a pt as an Inpt. Thanks for your help with documentation accuracy/specificity improvement! CK
[2016-05-06] MEDS: LISINOPRIL 10 MG TABLET PO SCH (10:12)
[2016-05-06] MEDS: METOPROLOL TARTRATE 100 MG TABLET PO SCH (10:13)
[2016-05-06] MEDS: PREDNISONE 20 MG TABLET PO SCH (10:13)
[2016-05-06] MEDS: AMLODIPINE BESYLATE 10 MG TABLET PO SCH (10:13)
[2016-05-06] MEDS: ASPIRIN 81 MG TABLET, ENT COATED PO SCH (10:13)
[2016-05-06] MEDS: MULTIVITAMIN TABLET PO SCH (10:14)
[2016-05-06] MEDS: FLUOXETINE HCL 20 MG CAPSULE PO SCH (10:14)
[2016-05-06] MEDS: FAMOTIDINE 20 MG TABLET PO SCH (10:14)
[2016-05-06] MEDS: GUAIFENESIN 600 MG TABLET.SA PO SCH (10:14)
[2016-05-06 10:20] VITALS: BP 130/90
--- NOTE | 2016-05-06 13:19 | PDOC DISCHARGE SUMMARY ---
General - Admit/Disc Date/PCP Admission Date/Primary Care Provider: 05/03/16 14:46 Discharge Date: 05/06/16 - Discharge Diagnosis (1) Asthmatic bronchitis with acute exacerbation Is this a current diagnosis for this admission?: YesSummary: Patient was in moderate respiratory distress on admission without hypoxemia Chest x-ray was negative for pneumonia He was treated with steroids nebs Levaquin IV Mucomyst nebs and Mucinex were added After 3 days he could mobilize secretions and the wheezing improved Patient was discharged with antibiotics, steroid taper, nebs, and Advair discus (2) Diabetes Is this a current diagnosis for this admission?: YesSummary: Diabetes mellitus type II on insulin Blood sugars were labile, low in the morning and high in the afternoon We split his Lantus insulin and prescribed 15 units daily at bedtime and 25 units daily (3) HTN (hypertension) Is this a current diagnosis for this admission?: YesSummary: controlled - Additional Information Resuscitation Status: Full Code Discharge Diet: Diabetic Discharge Activity: Activity As Tolerated Home Medications: Albuterol Sulfate [Ventolin Hfa] 2 puff IH Q6HP PRN 05/03/16 Amlodipine Besylate [Norvasc 10 mg Tablet] 10 mg PO DAILY 05/03/16 Aspirin [Aspirin EC] 81 mg PO DAILY 05/03/16 Fluoxetine HCl [Prozac 20 mg Capsule] 20 mg PO DAILY 05/03/16 Hydrochlorothiazide 25 mg PO QAM 05/03/16 Lisinopril [Prinivil 40 mg Tablet] 40 mg PO DAILY 05/03/16 Methocarbamol [Robaxin 750 mg Tablet] 750 mg PO Q8 05/03/16 Metoprolol Tartrate [Lopressor 100 mg Tablet] 100 mg PO Q12 05/03/16 Multivitamin [Daily Multiple Vitamin] 1 tab PO DAILY 05/03/16 Naphazoline HCl [Clear Eyes] 1 drop OU PRN PRN 05/03/16 Simvastatin [Zocor 40 mg Tablet] 40 mg PO QHS 05/03/16 Tramadol HCl [Ultram 50 mg Tablet] 50 mg PO Q4HP PRN 05/03/16 Fluticasone/Salmeterol [Advair 250-50 Diskus 28 dose] 1 inh IH Q12H #1 inhaler 05/06/16 Insulin Glargine,Hum.rec.anlog [Lantus Insulin 100 Unit/mL] 15 unit SUBCUT QHS # 1 insuln.pen 05/06/16 Insulin Glargine,Hum.rec.anlog [Lantus Insulin 100 Unit/mL] 25 unit SUBCUT DAILY #1 insuln.pen 05/06/16 Ipratropium/Albuterol Sulfate [Duoneb 3 ml Ampul] 3 ml NEB RTQ6HP PRN #30 vial.neb 05/06/16 Levofloxacin [Levaquin 750 mg Tablet] 750 mg PO DAILY #5 tablet 05/06/16 Prednisone [Deltasone 20 mg Tablet] 40 mg PO DAILY #30 tablet 05/06/16 History of Present Illness Patient complains of: SOB History of Present Illness: 89 yo male with history of bronchitis presents with complaints of shortness of breath and cough over the past 5 days. Patient notes a nonproductive, notes significant respiratory difficulty and that his chest wall hurts when he coughs Patient came to the ED for evaluation; he was found extremely dyspneic with wheezes bilaterally He did not improve with several DuoNebs in the ED And although he was not hypoxemic was admitted under hospitalist service for further care Hospital Course Hospital Course: See above Physical Exam Vital Signs: Temp Pulse Resp BP Pulse Ox 98.1 F 77 17 130/90 H 97 05/06/16 10:17 05/06/16 10:17 05/06/16 10:17 05/06/16 10:17 05/06/16 10:17 Intake & Output 05/05/16 05/06/16 05/07/16 00:59 00:59 00:59 Intake Total 2275 1725 100 Output Total 302 300 Balance 1973 1425 100 Weight 77.6 kg 77.8 kg 77.8 kg General appearance: PRESENT: no acute distress, well-developed, well-nourished Head exam: PRESENT: atraumatic, normocephalic Eye exam: PRESENT: conjunctiva pink, EOMI, PERRLA. ABSENT: scleral icterus Ear exam: PRESENT: normal external ear exam Mouth exam: PRESENT: moist, tongue midline Neck exam: ABSENT: carotid bruit, JVD, lymphadenopathy, thyromegaly Respiratory exam: PRESENT: wheezes - Few remaining bilaterally. ABSENT: rales, rhonchi Cardiovascular exam: PRESENT: RRR. ABSENT: diastolic murmur, rubs, systolic murmur Pulses: PRESENT: normal dorsalis pedis pul Vascular exam: PRESENT: normal capillary refill GI/Abdominal exam: PRESENT: normal bowel sounds, soft. ABSENT: distended, guarding, mass, organolmegaly, rebound, tenderness Rectal exam: PRESENT: deferred Extremities exam: PRESENT: full ROM. ABSENT: calf tenderness, clubbing, pedal edema Neurological exam: PRESENT: alert, awake, oriented to person, oriented to place , oriented to time, oriented to situation, CN II-XII grossly intact. ABSENT: motor sensory deficit Psychiatric exam: PRESENT: appropriate affect, normal mood. ABSENT: homicidal ideation, suicidal ideation Skin exam: PRESENT: dry, intact, warm. ABSENT: cyanosis, rash Results Laboratory Results: 05/04/16 05:42 05/04/16 05:42 05/04/16 05:42 NT-Pro-B Natriuret Pep 199 05/03/16 05/03/16 05/03/16 12:15 12:15 12:50 MCH 26.2 L MCHC 30.6 L RDW 14.4 H Lymphocytes % 8.7 L Eosinophils % 18.1 H Absolute Eosinophils 1.0 H Chloride 96 L Glucose 356 H POC Glucose Hemoglobin A1c % Creatine Kinase 492 H TSH Urine Glucose (UA) >=500 H 05/03/16 05/03/16 05/04/16 17:58 20:55 05:42 MCH MCHC RDW 14.3 H Lymphocytes % 12.5 L Eosinophils % Absolute Eosinophils Chloride Glucose POC Glucose 254 H 310 H Hemoglobin A1c % Creatine Kinase TSH Urine Glucose (UA) 05/04/16 05/04/16 05/04/16 05:42 05:42 05:42 MCH MCHC RDW Lymphocytes % Eosinophils % Absolute Eosinophils Chloride Glucose 63 L POC Glucose Hemoglobin A1c % 10.4 H Creatine Kinase TSH 0.31 L Urine Glucose (UA) 05/04/16 05/04/16 05/04/16 06:35 16:37 21:49 MCH MCHC RDW Lymphocytes % Eosinophils % Absolute Eosinophils Chloride Glucose POC Glucose 68 L 181 H 225 H Hemoglobin A1c % Creatine Kinase TSH Urine Glucose (UA) 05/05/16 05/05/16 05/06/16 05:34 22:00 05:40 MCH MCHC RDW Lymphocytes % Eosinophils % Absolute Eosinophils Chloride Glucose POC Glucose 183 H 298 H 150 H Hemoglobin A1c % Creatine Kinase TSH Urine Glucose (UA) EKG Comments: Normal sinus rhythm LVH Impressions: Chest X-Ray 05/03/16 11:14 IMPRESSION: NO SIGNIFICANT RADIOGRAPHIC FINDING IN THE CHEST. Plan Discharge Plan: Patient was discharged home to follow up with his primary care physician Dr. Kam[facility] Time Spent: Less than 30 Minutes
== END 2016-05-06 11:20 | disposition home or self-care (01) ==
LOC: ER 10:59 → EH 14:46 → 4S 16:13 → OBSVTOIN 17:14 → INTOOBSV 17:14
PROVIDERS: ADMIT Family Medicine; ATTEND Family Medicine
DX: J45.901 Unspecified asthma with (acute) exacerbation (principal); E11.9 Type 2 diabetes mellitus without complications; Z79.4 Long term (current) use of insulin; I10 Essential (primary) hypertension; Z79.51 Long term (current) use of inhaled steroids; I25.10 Atherosclerotic heart disease of native coronary artery without angina pectoris; E78.5 Hyperlipidemia, unspecified; R01.1 Cardiac murmur, unspecified; K21.9 Gastro-esophageal reflux disease without esophagitis; M19.90 Unspecified osteoarthritis, unspecified site; F32.9 Major depressive disorder, single episode, unspecified; Z23 Encounter for immunization
CPT/HCPCS: 93005; 94640 ×6; 99285; 36415 ×2; 87040; 87070; 84439; 87205; 82553; 82962 ×4; 82550; 84443; 85025 ×2; 80053 ×2; 81001; 84484; 80307; 84481; 83036; 80061; 83880; 71020; 90686; 93010; 90471; G0378 ×3; J1815 ×3; J3490 ×4; J1650 ×3; J7512 ×4; J7030; J1956 ×2; J7620 ×4

== ENCOUNTER 2016-09-15 16:48 | Emergency (ER) | payer OTHER ==
--- NOTE | 2016-09-15 18:37 | ER Document Report ---
ED Medical Screen (RME) - General Chief Complaint: Penile Pain Stated Complaint: GROIN PAIN Time Seen by Provider: 09/15/16 18:35 Mode of Arrival: Ambulatory Information source: Patient Notes: Patient presents emergency department with complaints of penile pain erythema and swelling with difficulty voiding. Reports he has been having this problem since the first of year and been treated at the [place] [facility]. He reports the swelling and redness has increased and he is unable to void fully. Denies fever vomiting diarrhea. Reports back pain but also reports history of surgeries. TRAVEL OUTSIDE OF THE [place] IN LAST 30 DAYS: No - Related Data Allergies/Adverse Reactions: No Known Allergies Allergy (Verified 09/15/16 16:54) Past Medical History - Past Medical History Cardiac Medical History: Reports: Hx Coronary Artery Disease, Hx Hypercholesterolemia, Hx Hypertension, Hx Heart Murmur Denies: Hx Heart Attack Pulmonary Medical History: Reports: Hx Bronchitis, Hx Pneumonia Denies: Hx Asthma, Hx COPD, Hx Tuberculosis Neurological Medical History: Reports: Hx Cerebrovascular Accident, Hx Migraine - neuropathy. Denies: Hx Seizures Endocrine Medical History: Reports: Hx Diabetes Mellitus Type 1, Hx Diabetes Mellitus Type 2 Renal/ Medical History: Reports: Hx Kidney Stones. Denies: Hx Peritoneal Dialysis GI Medical History: Reports: Hx Gastroesophageal Reflux Disease, Hx Ulcer Musculoskeltal Medical History: Reports Hx Arthritis Psychiatric Medical History: Reports: Hx Depression Traumatic Medical History: Reports: Hx Fractures - Jaw Past Surgical History: Reports: Hx Orthopedic Surgery - 2 back surgeries, Hx Testicular Surgery - L testicle orchidectomy, Other - ca testis 1989 S/P orchiectomy - Immunizations Immunizations up to date: Yes Hx Diphtheria, Pertussis, Tetanus Vaccination: Yes Physical Exam - Vital signs Vitals: Temp Pulse Resp BP Pulse Ox 98.3 F 65 18 149/91 H 96 09/15/16 16:54 09/15/16 16:54 09/15/16 16:54 09/15/16 16:54 09/15/16 16:54 Course - Vital Signs Vital signs: Temp Pulse Resp BP Pulse Ox 98.3 F 65 18 149/91 H 96 09/15/16 16:54 09/15/16 16:54 09/15/16 16:54 09/15/16 16:54 09/15/16 16:54
[2016-09-15 19:27] LABS: ABSOLUTE LYMPHOCYTES (AUTO) 1.6 10^3/uL (0.5-4.7); ABSOLUTE MONOCYTES (AUTO) 0.6 10^3/uL (0.1-1.4); ABSOLUTE NEUT (AUTO) 2.7 10^3/uL (1.7-8.2); BASOPHILS % (AUTO) 0.7 % (0-2); EOSINOPHILS % (AUTO) 16.4 % (0-6); HEMATOCRIT 45.5 % (37.9-51.0); HEMOGLOBIN 14.7 g/dL (13.5-17.0); HGB HCT DIFFERENCE -1.4; LYMPHOCYTES % (AUTO) 27.8 % (13-45); MEAN CORPUSCULAR HEMOGLOBIN 26.6 pg (27.0-33.4); MEAN CORPUSCULAR HGB CONC 32.4 g/dL (32.0-36.0); MEAN CORPUSCULAR VOLUME 82 fl (80-97); MONOCYTES % (AUTO) 9.7 % (3-13); RED BLOOD COUNT 5.53 10^6/uL (4.35-5.55); RED CELL DISTRIBUTION WIDTH 14.2 % (11.5-14.0); SEGMENTED NEUTROPHILS % (AUTO) 45.4 % (42-78); WHITE BLOOD COUNT 5.8 10^3/uL (4.0-10.5)
[2016-09-15 20:01] LABS: ALANINE AMINOTRANSFERASE 28 U/L (21-72); ALBUMIN 4.5 g/dL (3.5-5.0); ALKALINE PHOSPHATASE 135 U/L (38-126); ANION GAP 12 (5-19); ASPARTATE AMINO TRANSFERASE 23 U/L (17-59); BILIRUBIN,DIRECT 0.3 mg/dL (0.0-0.4); BILIRUBIN,TOTAL 0.5 mg/dL (0.2-1.3); BLOOD UREA NITROGEN 16 mg/dL (7-20); CALCIUM 10.2 mg/dL (8.4-10.2); CARBON DIOXIDE 31 mmol/L (22-30); CHLORIDE 95 mmol/L (98-107); CREATININE RESULT 1.04 mg/dL (0.52-1.25); GLUCOSE 251 mg/dL (75-110); POTASSIUM 4.7 mmol/L (3.6-5.0); SODIUM 137.8 mmol/L (137-145); TOTAL PROTEIN 7.9 g/dL (6.3-8.2)
[2016-09-15 20:04] LABS: APPEARANCE,URINE CLEAR; BILIRUBIN,URINE NEGATIVE (NEGATIVE); GLUCOSE, URINE >=500 mg/dL (NEGATIVE); KETONES,URINE NEGATIVE (NEGATIVE); LEUKOCYTE ESTERASE,URINE NEGATIVE (NEGATIVE); NITRITE,URINE NEGATIVE (NEGATIVE); PROTEIN,URINE NEGATIVE (NEGATIVE); URINE SPECIFIC GRAVITY 1.017; UROBILINOGEN,URINE NEGATIVE mg/dL (<2.0)
[2016-09-15] MEDS ORDERED: CLOTRIMAZOLE 1% CREAM 15 GM TP ONE (20:04)
--- NOTE | 2016-09-15 20:07 | ER Document Report ---
ED GI/ - General Chief Complaint: Penile Pain Stated Complaint: GROIN PAIN Time Seen by Provider: 09/15/16 18:35 Mode of Arrival: Ambulatory Notes: Patient is a 66-year-old male who presents emergency department complaining of redness, pain and swelling at the tip of his penis and on and off since April. Patient is at this current episode is lasting for about 2 weeks but worse over the past 4 days. Admits to pain with forced skin retraction with white substance on the tip of his penis under the foreskin. Medical history significant for coronary artery disease, hyperlipidemia, hypertension, history of bronchitis pneumonia, CVA, history of migraine, diabetes type 2, history kidney stones, GERD, osteoarthritis, history depression , history of testicular cancer in requiring left orchidectomy TRAVEL OUTSIDE OF THE [place] IN LAST 30 DAYS: No - Related Data Allergies/Adverse Reactions: No Known Allergies Allergy (Verified 09/15/16 16:54) Past Medical History - General Information source: Patient - Social History Smoking Status: Never Smoker Chew tobacco use (# tins/day): No Frequency of alcohol use: Occasional Drug Abuse: Cocaine Family History: Reviewed & Not Pertinent Patient has suicidal ideation: No Patient has homicidal ideation: No - Past Medical History Cardiac Medical History: Reports: Hx Coronary Artery Disease, Hx Hypercholesterolemia, Hx Hypertension, Hx Heart Murmur Denies: Hx Heart Attack Pulmonary Medical History: Reports: Hx Bronchitis, Hx Pneumonia Denies: Hx Asthma, Hx COPD, Hx Tuberculosis Neurological Medical History: Reports: Hx Cerebrovascular Accident, Hx Migraine - neuropathy. Denies: Hx Seizures Endocrine Medical History: Reports: Hx Diabetes Mellitus Type 1, Hx Diabetes Mellitus Type 2 Renal/ Medical History: Reports: Hx Kidney Stones. Denies: Hx Peritoneal Dialysis GI Medical History: Reports: Hx Gastroesophageal Reflux Disease, Hx Ulcer Musculoskeltal Medical History: Reports Hx Arthritis Psychiatric Medical History: Reports: Hx Depression Traumatic Medical History: Reports: Hx Fractures - Jaw Past Surgical History: Reports: Hx Orthopedic Surgery - 2 back surgeries, Hx Testicular Surgery - L testicle orchidectomy, Other - 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 - Immunizations Immunizations up to date: Yes Hx Diphtheria, Pertussis, Tetanus Vaccination: Yes Hx Pneumococcal Vaccination: 04/20/11 Physical Exam - Vital signs Vitals: Temp Pulse Resp BP Pulse Ox 98.3 F 65 18 149/91 H 96 09/15/16 16:54 09/15/16 16:54 09/15/16 16:54 09/15/16 16:54 09/15/16 16:54 - General General appearance: Appears well, Alert In distress: None - Cardiovascular Pulses: Normal: Femoral - Genitourinary Inspection: Other - redness and swelling at the head of the penis, with white clumpy discharge aroudn the head of the penis Tenderness: No: Lesions, Testicle tender, Epididymis tender Cremasteric reflex: Normal Scrotum: Normal. No: Swelling, Redness, Hot to touch - Skin Skin Temperature: Warm Skin Moisture: Dry Skin Color: Normal Skin Turgor: Elastic Course - Re-evaluation Re-evalutation: 09/16/16 06:47 patient is aDM with evidence of yeast infection, patient educated on care and medication. [facility] - Vital Signs Vital signs: Temp Pulse Resp BP Pulse Ox 98.3 F 70 16 134/78 H 97 09/15/16 16:54 09/15/16 20:46 09/15/16 20:46 09/15/16 20:46 09/15/16 20:46 - Laboratory Result Diagrams: 09/15/16 19:04 09/15/16 19:04 Laboratory results interpreted by me: 09/15/16 09/15/16 09/15/16 19:04 19:04 19:44 MCH 26.6 L RDW 14.2 H Eosinophils % 16.4 H Absolute Eosinophils 1.0 H Chloride 95 L Carbon Dioxide 31 H Glucose 251 H Alkaline Phosphatase 135 H Urine Glucose (UA) >=500 H Discharge - Discharge Clinical Impression: Balanitis Condition: Good Disposition: HOME, SELF-CARE Instructions: Dimitris ([facility]) Prescriptions: Clotrimazole 1 applic TP BID #1 cream.gm. Forms: Elevated Blood Pressure
[2016-09-16 00:12] VITALS: BP 134/78
== END 2016-09-15 20:46 | disposition home or self-care (01) ==
LOC: ER 16:48
DX: N48.1 Balanitis (principal); N48.89 Other specified disorders of penis; I25.10 Atherosclerotic heart disease of native coronary artery without angina pectoris; E78.00 Pure hypercholesterolemia, unspecified; I10 Essential (primary) hypertension; E11.9 Type 2 diabetes mellitus without complications; K21.9 Gastro-esophageal reflux disease without esophagitis; Z86.73 Personal history of transient ischemic attack (TIA), and cerebral infarction without residual deficits; Z87.442 Personal history of urinary calculi; Z85.46 Personal history of malignant neoplasm of prostate
CPT/HCPCS: 99283; 36415; 85025; 80053; 81001; J3490

== ENCOUNTER 2017-09-29 12:20 | Emergency (ER) | payer MEDICARE, OTHER ==
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
[2017-09-29] MEDS ORDERED: NORMAL SALINE 1000 ML 1,000 ML IV ONE (13:03)
--- NOTE | 2017-09-29 13:09 | RADIOLOGY REPORT (SQ) ---
EXAM DESCRIPTION: CHEST 2 VIEWS COMPLETED DATE/TIME: 09/29/2017 12:51 pm REASON FOR STUDY: cough SOB; eval pneumonia COMPARISON: 05/03/2016 EXAM PARAMETERS: NUMBER OF VIEWS: two views TECHNIQUE: Digital Frontal and Lateral radiographic views of the chest acquired. RADIATION DOSE: NA LIMITATIONS: none FINDINGS: LUNGS AND PLEURA: No opacities, masses or pneumothorax. No pleural effusion. MEDIASTINUM AND HILAR STRUCTURES: No masses or contour abnormalities. HEART AND VASCULAR STRUCTURES: Heart normal size. No evidence for failure. BONES: No acute findings. HARDWARE: None in the chest. OTHER: No other significant finding. IMPRESSION: NO ACUTE RADIOGRAPHIC FINDING IN THE CHEST. TECHNICAL DOCUMENTATION: JOB ID: [id number] [employer]- All Rights Reserved Reading location - IP/workstation name: [email or web address]
[2017-09-29 13:23] LABS: ABSOLUTE BASOPHILS # (AUTO) 0.1 10^3/uL (0.0-0.2); ABSOLUTE EOSINOPHILS # (AUTO) 0.6 10^3/uL (0.0-0.6); ABSOLUTE LYMPHOCYTES (AUTO) 0.7 10^3/uL (0.5-4.7); ABSOLUTE MONOCYTES (AUTO) 0.4 10^3/uL (0.1-1.4); ABSOLUTE NEUT (AUTO) 2.4 10^3/uL (1.7-8.2); BASOPHILS % (AUTO) 1.7 % (0-2); EOSINOPHILS % (AUTO) 14.7 % (0-6); HEMATOCRIT 45.5 % (37.9-51.0); HEMOGLOBIN 14.8 g/dL (13.5-17.0); MEAN CORPUSCULAR HEMOGLOBIN 26.7 pg (27.0-33.4); MEAN CORPUSCULAR HGB CONC 32.6 g/dL (32.0-36.0); MEAN CORPUSCULAR VOLUME 82 fl (80-97); MONOCYTES % (AUTO) 9.6 % (3-13); PLATELET COUNT 196 10^3/uL (150-450); RED BLOOD COUNT 5.55 10^6/uL (4.35-5.55); RED CELL DISTRIBUTION WIDTH 14.5 % (11.5-14.0); TOTAL CELLS COUNTED % (AUTO) 100 %; WHITE BLOOD COUNT 4.1 10^3/uL (4.0-10.5)
[2017-09-29 13:35] LABS: ALANINE AMINOTRANSFERASE 33 U/L (21-72); ALBUMIN 4.4 g/dL (3.5-5.0); ALKALINE PHOSPHATASE 183 U/L (38-126); ANION GAP 13 (5-19); ASPARTATE AMINO TRANSFERASE 21 U/L (17-59); BILIRUBIN,DIRECT 0.3 mg/dL (0.0-0.4); BILIRUBIN,TOTAL 0.5 mg/dL (0.2-1.3); BLOOD UREA NITROGEN 14 mg/dL (7-20); CALCIUM 10.2 mg/dL (8.4-10.2); CARBON DIOXIDE 30 mmol/L (22-30); CHLORIDE 97 mmol/L (98-107); PHOSPHORUS 4.1 mg/dL (2.5-4.5); POTASSIUM 4.7 mmol/L (3.6-5.0); SODIUM 140.4 mmol/L (137-145); TOTAL PROTEIN 7.6 g/dL (6.3-8.2)
[2017-09-29 13:40] LABS: VENOUS BLOOD BASE EXCESS 3.9 mmol/L; VENOUS BLOOD HCO3 30.1 mmol/L (20-32); VENOUS BLOOD PCO2 51.5 mmHg (35-63); VENOUS BLOOD PH 7.39 (7.30-7.42)
[2017-09-29 13:44] LABS: GLUCOSE 481 mg/dL (75-110)
[2017-09-29 14:19] LABS: APPEARANCE,URINE CLEAR; BILIRUBIN,URINE NEGATIVE (NEGATIVE); COLOR,URINE STRAW; GLUCOSE, URINE >=500 mg/dL (NEGATIVE); KETONES,URINE NEGATIVE (NEGATIVE); LEUKOCYTE ESTERASE,URINE NEGATIVE (NEGATIVE); NITRITE,URINE NEGATIVE (NEGATIVE); PROTEIN,URINE NEGATIVE (NEGATIVE); URINE SPECIFIC GRAVITY 1.032; UROBILINOGEN,URINE NEGATIVE mg/dL (<2.0)
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
[2017-09-29 15:17] VITALS: BP 180/92
== END 2017-09-29 15:16 | disposition home or self-care (01) ==
LOC: ER 12:20
DX: E11.65 Type 2 diabetes mellitus with hyperglycemia (principal); J30.9 Allergic rhinitis, unspecified; J44.9 Chronic obstructive pulmonary disease, unspecified; R42 Dizziness and giddiness; R05 Cough; R09.81 Nasal congestion; R06.7 Sneezing; I10 Essential (primary) hypertension; I25.10 Atherosclerotic heart disease of native coronary artery without angina pectoris
CPT/HCPCS: 99285; 96360; 36415; 82962; 83735; 84100; 85025; 80053; 81001; 82803; 71046; J7030

== ENCOUNTER 2018-01-08 16:06 | Emergency (ER) | payer MEDICARE, OTHER ==
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
[2018-01-08 18:40] VITALS: BP 139/76
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
== END 2018-01-08 18:44 | disposition home or self-care (01) ==
LOC: ER 16:06
DX: S09.90XA Unspecified injury of head, initial encounter (principal); W22.8XXA Striking against or struck by other objects, initial encounter; Y93.H9 Activity, other involving exterior property and land maintenance, building and construction; Y92.007 Garden or yard of unspecified non-institutional (private) residence as the place of occurrence of the external cause; I25.10 Atherosclerotic heart disease of native coronary artery without angina pectoris; E78.00 Pure hypercholesterolemia, unspecified; I10 Essential (primary) hypertension; E11.9 Type 2 diabetes mellitus without complications; Z87.442 Personal history of urinary calculi
CPT/HCPCS: 70450; 99283

== ENCOUNTER 2018-05-26 11:28 | Emergency (ER) | payer OTHER, MEDICARE ==
--- NOTE | 2018-05-26 12:17 | ER Document Report ---
ED Medical Screen (RME) - General Chief Complaint: Urinary Problem Stated Complaint: URINARY ISSUE Time Seen by Provider: 05/26/18 12:10 Mode of Arrival: Ambulatory Information source: Patient Notes: 68-year-old male presents to the emergency department with complaints of a one- week history of increased urgency. Patient states that earlier in the week he was having some right-sided suprapubic pain. He states that he has a history of kidney stones and thought he was passing a stone. Patient states that he is continuing to have the pain and now he is having difficulty urinating. Patient states that when he attempts to urinate he is straining and as result he is defecating. Patient states that he is passing clots in his urine. Patient states that he does have a history of prostate issues but does not remember what they are. He denies any penile discharge or testicular pain. I have greeted and performed a rapid initial assessment of this patient. A comprehensive ED assessment and evaluation of the patient, analysis of test results and completion of the medical decision making process will be conducted by additional ED providers. PHYSICAL EXAMINATION: GENERAL: Well-appearing, well-nourished and in no acute distress. HEAD: Atraumatic, normocephalic. EYES: Pupils equal round extraocular movements intact, conjunctiva are normal. ENT: Nares patent NECK: Normal range of motion LUNGS: No respiratory distress Musculoskeletal: Normal range of motion NEUROLOGICAL: Normal speech, normal gait. PSYCH: Normal mood, normal affect. SKIN: Warm, Dry, normal turgor, no rashes or lesions noted. TRAVEL OUTSIDE OF THE [place] IN LAST 30 DAYS: No - Related Data Allergies/Adverse Reactions: No Known Allergies Allergy (Verified 05/26/18 11:28) Past Medical History - Past Medical History Cardiac Medical History: Reports: Hx Coronary Artery Disease, Hx Hypercholesterolemia, Hx Hypertension, Hx Heart Murmur Denies: Hx Heart Attack Pulmonary Medical History: Reports: Hx Bronchitis, Hx Pneumonia Denies: Hx Asthma, Hx COPD, Hx Tuberculosis Neurological Medical History: Reports: Hx Cerebrovascular Accident, Hx Migraine - neuropathy. Denies: Hx Seizures Endocrine Medical History: Reports: Hx Diabetes Mellitus Type 1, Hx Diabetes Mellitus Type 2 Renal/ Medical History: Reports: Hx Kidney Stones. Denies: Hx Peritoneal Dialysis GI Medical History: Reports: Hx Gastroesophageal Reflux Disease, Hx Ulcer Musculoskeltal Medical History: Reports Hx Arthritis Psychiatric Medical History: Reports: Hx Depression Traumatic Medical History: Reports: Hx Fractures - Jaw Past Surgical History: Reports: Hx Orthopedic Surgery - 2 back surgeries, Hx Testicular Surgery - L testicle orchidectomy, Other - ca testis 1989 S/P orchiectomy - Immunizations Immunizations up to date: Yes Hx Diphtheria, Pertussis, Tetanus Vaccination: Yes Physical Exam - Vital signs Vitals: Temp Pulse Resp BP Pulse Ox 98.3 F 60 16 153/87 H 100 05/26/18 11:39 05/26/18 11:39 05/26/18 11:39 05/26/18 11:39 05/26/18 11:39 Course - Vital Signs Vital signs: Temp Pulse Resp BP Pulse Ox 98.3 F 60 16 153/87 H 100 05/26/18 11:39 05/26/18 11:39 05/26/18 11:39 05/26/18 11:39 05/26/18 11:39
[2018-05-26 13:11] LABS: ABSOLUTE EOSINOPHILS # (AUTO) 0.7 10^3/uL (0.0-0.6); ABSOLUTE LYMPHOCYTES (AUTO) 1.2 10^3/uL (0.5-4.7); ABSOLUTE MONOCYTES (AUTO) 0.7 10^3/uL (0.1-1.4); ABSOLUTE NEUT (AUTO) 3.2 10^3/uL (1.7-8.2); BASOPHILS % (AUTO) 0.7 % (0-2); EOSINOPHILS % (AUTO) 11.3 % (0-6); HEMATOCRIT 42.8 % (37.9-51.0); HEMOGLOBIN 14.4 g/dL (13.5-17.0); LYMPHOCYTES % (AUTO) 20.8 % (13-45); MEAN CORPUSCULAR HEMOGLOBIN 28.1 pg (27.0-33.4); MEAN CORPUSCULAR HGB CONC 33.8 g/dL (32.0-36.0); MEAN CORPUSCULAR VOLUME 83 fl (80-97); MONOCYTES % (AUTO) 11.6 % (3-13); RED BLOOD COUNT 5.15 10^6/uL (4.35-5.55); RED CELL DISTRIBUTION WIDTH 15.1 % (11.5-14.0); SEGMENTED NEUTROPHILS % (AUTO) 55.6 % (42-78); TOTAL CELLS COUNTED % (AUTO) 100 %; WHITE BLOOD COUNT 5.8 10^3/uL (4.0-10.5)
[2018-05-26 13:15] LABS: APPEARANCE,URINE SLIGHTLY-CLOUDY; BILIRUBIN,URINE NEGATIVE (NEGATIVE); COLOR,URINE YELLOW; GLUCOSE, URINE 50 mg/dL (NEGATIVE); KETONES,URINE NEGATIVE (NEGATIVE); LEUKOCYTE ESTERASE,URINE NEGATIVE (NEGATIVE); NITRITE,URINE NEGATIVE (NEGATIVE); PROTEIN,URINE NEGATIVE (NEGATIVE); URINE SPECIFIC GRAVITY 1.019; UROBILINOGEN,URINE NEGATIVE mg/dL (<2.0)
[2018-05-26] MEDS ORDERED: DICYCLOMINE HCL INJ 20 MG/2 ML AMPULE IM ONE (13:21)
[2018-05-26] MEDS ORDERED: IPRATROPIUM/ALBUTEROL 0.5-2.5 MG/3 ML AMPUL NEB ONE (13:22)
[2018-05-26 13:31] LABS: PLATELET COUNT 192 10^3/uL (150-450)
--- NOTE | 2018-05-26 13:55 | ER Document Report ---
ED General - General Chief Complaint: Urinary Problem Stated Complaint: URINARY ISSUE Time Seen by Provider: 05/26/18 12:10 [facility] - Follow up in 3-5 days Mode of Arrival: Ambulatory Notes: Patient is a 68-year-old male with BPH that presents to the emergency department for chief complaint of suprapubic pain. Patient reports over the last week he has been having difficulty with his urination, having difficulty starting stream, and today he noticed some blood in the urine as well, he has had frequency, and hesitancy, he does have a history of kidney stone, but denies having any significant flank pain, he states he has some left-sided back pain, but he thinks it is related to his chronic low back pain that he has. He states he is a history of BPH, is not currently taking any medication for that. He has been straining more for bowel movements as well. Denies any fevers, chills, night sweats, chest pain, shortness of breath or difficulty breathing, nausea, vomiting or diarrhea. Past Medical History: BPH, kidney stone, diabetes mellitus, hypertension Past Surgical History: Back surgery Social History: Admits to using alcohol rarely, denies tobacco or drug use. Family History: Reviewed and noncontributory for presenting illness Allergies: Reviewed, see documented allergy list. REVIEW OF SYSTEMS: Other than noted above, the 12 point review of systems was reviewed with the patient and were negative, all pertinent findings are included in the HPI. PHYSICAL EXAMINATION: Vital signs reviewed, nursing noted reviewed. GENERAL: Well-appearing, well-nourished and in no acute distress. HEAD: Atraumatic, normocephalic. EYES: Eyes appear normal, extraocular movements intact, sclera anicteric, conjunctiva are normal. ENT: nares patent, oropharynx clear without exudates. Moist mucous membranes. NECK: Normal range of motion, supple without lymphadenopathy LUNGS: Breath sounds clear to auscultation bilaterally and equal. No wheezes rales or rhonchi. HEART: Regular rate and rhythm without murmurs ABDOMEN: Soft, nontender, normoactive bowel sounds. No rebound, guarding, or rigidity. No masses appreciated. Flank tenderness or CVA tenderness, no suprapubic tenderness. EXTREMITIES: Nontender, good range of motion, no pitting or edema. NEUROLOGICAL: No focal neurological deficits. Moves all extremities spontaneously Motor and sensory grossly intact on exam. PSYCH: Normal mood, normal affect. SKIN: Warm, Dry, normal turgor, no rashes or lesions noted on exposed skin TRAVEL OUTSIDE OF THE [place] IN LAST 30 DAYS: No - Related Data Allergies/Adverse Reactions: No Known Allergies Allergy (Verified 05/26/18 11:28) Past Medical History - General Information source: Patient - Social History Smoking Status: Never Smoker Family History: Reviewed & Not Pertinent Patient has suicidal ideation: No Patient has homicidal ideation: No - Past Medical History Cardiac Medical History: Reports: Hx Coronary Artery Disease, Hx Hypercholesterolemia, Hx Hypertension, Hx Heart Murmur Denies: Hx Heart Attack Pulmonary Medical History: Reports: Hx Bronchitis, Hx Pneumonia Denies: Hx Asthma, Hx COPD, Hx Tuberculosis Neurological Medical History: Reports: Hx Cerebrovascular Accident, Hx Migraine - neuropathy. Denies: Hx Seizures Endocrine Medical History: Reports: Hx Diabetes Mellitus Type 1, Hx Diabetes Mellitus Type 2 Renal/ Medical History: Reports: Hx Kidney Stones. Denies: Hx Peritoneal Dialysis GI Medical History: Reports: Hx Gastroesophageal Reflux Disease, Hx Ulcer Musculoskeletal Medical History: Reports Hx Arthritis Psychiatric Medical History: Reports: Hx Depression Traumatic Medical History: Reports: Hx Fractures - Jaw Past Surgical History: Reports: Hx Orthopedic Surgery - 2 back surgeries, Hx Testicular Surgery - L testicle orchidectomy, Other - 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 - Immunizations Immunizations up to date: Yes Hx Diphtheria, Pertussis, Tetanus Vaccination: Yes Hx Pneumococcal Vaccination: 04/20/11 Physical Exam - Vital signs Vitals: Temp Pulse Resp BP Pulse Ox 98.3 F 60 16 153/87 H 100 05/26/18 11:39 05/26/18 11:39 05/26/18 11:39 05/26/18 11:39 05/26/18 11:39 Course - Re-evaluation Re-evalutation: Patient seen and examined vital signs reviewed. Laboratory data and imaging were ordered as appropriate for the patient's presenting symptoms and complaint, with consideration of any critical or life threatening conditions that may be associated with their obtained history and exam as noted above. Results were reviewed when available and demonstrated CT imaging that demonstrated prostamegaly, with possible cystitis, nonobstructing renal stones, UA was positive for small blood, blood work was otherwise unremarkable, normal renal function The patient was re-evaluated and was stable Evaluation was most consistent with prostatitis, and prostamegaly, will treat the patient with ciprofloxacin for 2 weeks, have him follow-up with his primary care at [facility], he is also given a prescription for Flomax for 2 weeks to help with his symptoms associated with this. Results were discussed with the patient at this point, after careful consideration I feel that that patient can be discharged from the emergency department, the patient was educated treatments and reasons to return to the emergency department based on their presumed diagnosis as noted above, they were advised to followup with a primary care physician in 2-3 days. Patient was agreeable to plan of care. *Note is created using voice recognition software and may contain spelling, syntax or grammatical errors. Laboratory 05/26/18 05/26/18 05/26/18 12:50 12:50 12:50 WBC 5.8 RBC 5.15 Hgb 14.4 Hct 42.8 MCV 83 MCH 28.1 MCHC 33.8 RDW 15.1 H Plt Count 192 Seg Neutrophils % 55.6 Lymphocytes % 20.8 Monocytes % 11.6 Eosinophils % 11.3 H Basophils % 0.7 Absolute Neutrophils 3.2 Absolute Lymphocytes 1.2 Absolute Monocytes 0.7 Absolute Eosinophils 0.7 H Absolute Basophils 0.0 Sodium Cancelled Potassium Cancelled Chloride Cancelled Carbon Dioxide Cancelled Anion Gap Cancelled BUN Cancelled Creatinine Cancelled Est GFR ( Amer) Cancelled Est GFR (Non-Af Amer) Cancelled Glucose Cancelled Calcium Cancelled Total Bilirubin Cancelled Direct Bilirubin Cancelled Neonat Total Bilirubin Cancelled Neonat Direct Bilirubin Cancelled Neonat Indirect Bili Cancelled AST Cancelled ALT Cancelled Alkaline Phosphatase Cancelled Total Protein Cancelled Albumin Cancelled Urine Color YELLOW Urine Appearance SLIGHTLY-CLOUDY Urine pH 5.0 Ur Specific [place] 1.019 Urine Protein NEGATIVE Urine Glucose (UA) 50 H Urine Ketones NEGATIVE Urine Blood SMALL H Urine Nitrite NEGATIVE Urine Bilirubin NEGATIVE Urine Urobilinogen NEGATIVE Ur Leukocyte Esterase NEGATIVE Urine WBC (Auto) 6 Urine RBC (Auto) 19 Urine Mucus (Auto) RARE Urine Ascorbic Acid 20 H 05/26/18 13:25 WBC RBC Hgb Hct MCV MCH MCHC RDW Plt Count Seg Neutrophils % Lymphocytes % Monocytes % Eosinophils % Basophils % Absolute Neutrophils Absolute Lymphocytes Absolute Monocytes Absolute Eosinophils Absolute Basophils Sodium 139.7 Potassium 5.0 Chloride 100 Carbon Dioxide 31 H Anion Gap 9 BUN 13 Creatinine 0.92 Est GFR ( Amer) > 60 Est GFR (Non-Af Amer) > 60 Glucose 192 H Calcium 9.8 Total Bilirubin 0.4 Direct Bilirubin 0.2 Neonat Total Bilirubin Not Reportable Neonat Direct Bilirubin Not Reportable Neonat Indirect Bili Not Reportable AST 26 ALT 35 Alkaline Phosphatase 136 H Total Protein 7.4 Albumin 4.2 Urine Color Urine Appearance Urine pH Ur Specific [place] Urine Protein Urine Glucose (UA) Urine Ketones Urine Blood Urine Nitrite Urine Bilirubin Urine Urobilinogen Ur Leukocyte Esterase Urine WBC (Auto) Urine RBC (Auto) Urine Mucus (Auto) Urine Ascorbic Acid Abdomen/Pelvis CT 05/26/18 13:28 IMPRESSION: Nonobstructive bilateral renal calculi. Prostatomegaly. Thick- walled urinary bladder which could be secondary to muscular hypertrophy secondary to prostate enlargement. Cystitis not excluded. - Vital Signs Vital signs: Temp Pulse Resp BP Pulse Ox 98.4 F 66 16 151/94 H 100 05/26/18 14:43 05/26/18 14:43 05/26/18 14:43 05/26/18 14:43 05/26/18 14:43 - Laboratory Result Diagrams: 05/26/18 12:50 05/26/18 13:25 Laboratory results interpreted by me: 05/26/18 05/26/18 05/26/18 12:50 12:50 13:25 RDW 15.1 H Eosinophils % 11.3 H Absolute Eosinophils 0.7 H Carbon Dioxide 31 H Glucose 192 H Alkaline Phosphatase 136 H Urine Glucose (UA) 50 H Urine Blood SMALL H Urine Ascorbic Acid 20 H Discharge - Discharge Clinical Impression: Prostatitis Qualifiers: Prostatitis type: unspecified Qualified Code(s): N41.9 - Inflammatory disease of prostate, unspecified Hematuria Qualifiers: Hematuria type: unspecified type Qualified Code(s): R31.9 - Hematuria, unspecified Condition: Stable Disposition: HOME, SELF-CARE Instructions: Ciprofloxacin ([facility]), Prostatic Hypertrophy ([facility]), Prostatitis ([facility]) Additional Instructions: Please take the complete course of antibiotics as prescribed, do not take this antibiotic with calcium, Tums, or milk as it will deactivate and make the antibiotic ineffective, you should also take the prescribed Flomax to help with your urinary flow, and follow-up with the [facility], call for an appointment on Monday, to repeat urine testing. Prescriptions: RX: Ciprofloxacin HCl [Cipro 500 mg Tablet] 500 mg PO BID #28 tablet Tamsulosin HCl [Flomax] 0.4 mg PO DAILY #14 cap.er.24h Referrals: [facility] [Provider Group] - Follow up in 3-5 days
[2018-05-26 13:56] LABS: ALANINE AMINOTRANSFERASE 35 U/L (21-72); ALBUMIN 4.2 g/dL (3.5-5.0); ALKALINE PHOSPHATASE 136 U/L (38-126); ANION GAP 9 (5-19); ASPARTATE AMINO TRANSFERASE 26 U/L (17-59); BILIRUBIN,DIRECT 0.2 mg/dL (0.0-0.4); BILIRUBIN,TOTAL 0.4 mg/dL (0.2-1.3); BLOOD UREA NITROGEN 13 mg/dL (7-20); CALCIUM 9.8 mg/dL (8.4-10.2); CARBON DIOXIDE 31 mmol/L (22-30); CHLORIDE 100 mmol/L (98-107); GLUCOSE 192 mg/dL (75-110); SODIUM 139.7 mmol/L (137-145); TOTAL PROTEIN 7.4 g/dL (6.3-8.2)
--- NOTE | 2018-05-26 14:29 | RADIOLOGY REPORT (SQ) ---
EXAM DESCRIPTION: CT ABD/PELVIS NO ORAL OR IV COMPLETED DATE/TIME: 05/26/2018 2:04 pm REASON FOR STUDY: LEFT FLANK AND SUPRAPUBIC PAIN, HEMATURIA COMPARISON: 12/03/2009. TECHNIQUE: CT scan of the abdomen and pelvis performed without intravenous or oral contrast. Images reviewed with lung, soft tissue, and bone windows. Reconstructed coronal and sagittal MPR images revi ewed. All images stored on PACS. All CT scanners at this facility use dose modulation, iterative reconstruction, and/or weight based d osing when appropriate to reduce radiation dose to as low as reasonably achievable (ALARA). [facility]: Dose Right [facility]: CareDose [facility]: Dose Right [facility]: Teradose 4D [facility]: Smart Pixelated RADIATION DOSE: CT Rad equipment meets quality standard of care and radiation dose reduction techniq ues were employed. CTDIvol: 10.1 mGy. DLP: 552 mGy-cm.mGy. LIMITATIONS: None. FINDINGS: LOWER CHEST: No significant findings. No nodules or infiltrates. NON-CONTRASTED LIVER, SPLEEN, ADRENALS: LIVER: No abnormality seen. SPLEEN: No abnormality seen. ADRENALS: No abnormality. PANCREAS: No abnormality. GALLBLADDER: No abnormality. RIGHT KIDNEY AND URETER: Nonobstructive calculus lower pole right kidney. No ureteral calculus . LEFT KIDNEY AND URETER: Nonobstructive calculi upper pole left kidney. No ureteral calculus . AORTA AND RETROPERITONEUM: Atherosclerotic change of the infrarenal abdominal aorta and iliac vessels . Atherosclerotic change of the femoral vessels. . No retroperitoneal masses or adenopathy. BOWEL AND PERITONEAL CAVITY: Colonic diverticulosis. Possible hiatal hernia. Umbilical hernia conta ining fat. APPENDIX: Retrocecal appendix. No abnormality seen. PELVIS, BLADDER, AND ABDOMINAL WALL:PROSTATE AND SEMINAL VESICLES: Mild prostatomegaly with prostati c calculi. URINARY BLADDER: Thick-walled and decompressed. The possibility of muscular hypertrophy is a consideration. In addition cystitis not excluded. Clinical correlation with urinalysis. BONES: Multilevel lumbar spondylosis. Degenerative disc disease prominent L4-5. Dorsal spondylosis. IMPRESSION: Nonobstructive bilateral renal calculi. Prostatomegaly. Thick-walled urinary bladder w hich could be secondary to muscular hypertrophy secondary to prostate enlargement. Cystitis not excl uded. COMMENT: Quality ID # [id number]: Final reports with documentation of one or more dose reduction techniques (e.g., Automated exposure control, adjustment of the mA and/or kV according to patient size, use of iterative reconstruction technique) TECHNICAL DOCUMENTATION: JOB ID: [id number] [employer]- All Rights Reserved Reading location - IP/workstation name: [email or web address]
[2018-05-26 14:48] VITALS: BP 151/94
== END 2018-05-26 14:53 | disposition home or self-care (01) ==
LOC: ER 11:28
DX: N41.9 Inflammatory disease of prostate, unspecified (principal); R31.9 Hematuria, unspecified; R10.30 Lower abdominal pain, unspecified; R35.0 Frequency of micturition; R39.11 Hesitancy of micturition; M54.9 Dorsalgia, unspecified; M54.5 Low back pain; G89.29 Other chronic pain
CPT/HCPCS: 36415; 74176; 80053; 81001; 85025; 87086; 99284

== ENCOUNTER 2018-06-11 10:18 | Emergency (ER) | payer OTHER, MEDICARE ==
[2018-06-11] MEDS ORDERED: IPRATROPIUM/ALBUTEROL 0.5-2.5 MG/3 ML AMPUL NEB ONE (11:56)
--- NOTE | 2018-06-11 11:59 | ER Document Report ---
ED Medical Screen (RME) - General Chief Complaint: Breathing Difficulty Stated Complaint: DIFFICULTY BREATHING Time Seen by Provider: 06/11/18 11:52 Mode of Arrival: Medic Information source: Patient, [facility] Records Notes: 68-year-old male with a history of COPD, hypertension, hyperlipidemia presents with complaint of shortness of breath, cough, rib pain and chills and sweats that started 5 days prior to arrival. Patient did receive albuterol and Solu- Medrol via EMS and does report some improvement in his shortness of breath. I have greeted and performed a rapid initial assessment of this patient. A comprehensive ED assessment and evaluation of the patient, analysis of test results and completion of medical decision making process we will be contacted by additional ED providers. PHYSICAL EXAMINATION: Vital signs reviewed GENERAL: Well-appearing, well-nourished and in no acute distress. LUNGS: Coarse breath sounds bilaterally Musculoskeletal: Normal range of motion NEUROLOGICAL: Normal speech, normal gait. PSYCH: Normal mood, normal affect. SKIN: Warm, Dry, normal turgor, no rashes or lesions noted. TRAVEL OUTSIDE OF THE [place] IN LAST 30 DAYS: No - HPI Onset: Other Onset/Duration: Persistent Quality of pain: Achy Associated Symptoms: Cough (productive), Fever, Shortness of breath, Sweating Exacerbated by: Coughing Relieved by: Denies Similar symptoms previously: Yes Recently seen / treated by doctor: No - Related Data Smoking: Non-smoker Frequency of alcohol use: None Drug Abuse: None Allergies/Adverse Reactions: No Known Allergies Allergy (Verified 06/11/18 11:44) Past Medical History - Social History Frequency of alcohol use: None Drug Abuse: None - Past Medical History Cardiac Medical History: Reports: Hx Coronary Artery Disease, Hx Hypercholesterolemia, Hx Hypertension, Hx Heart Murmur Denies: Hx Heart Attack Pulmonary Medical History: Reports: Hx Bronchitis, Hx Pneumonia Denies: Hx Asthma, Hx COPD, Hx Tuberculosis Neurological Medical History: Reports: Hx Cerebrovascular Accident, Hx Migraine - neuropathy. Denies: Hx Seizures Endocrine Medical History: Reports: Hx Diabetes Mellitus Type 1, Hx Diabetes Mellitus Type 2 Renal/ Medical History: Reports: Hx Kidney Stones. Denies: Hx Peritoneal Dialysis GI Medical History: Reports: Hx Gastroesophageal Reflux Disease, Hx Ulcer Musculoskeltal Medical History: Reports Hx Arthritis Psychiatric Medical History: Reports: Hx Depression Traumatic Medical History: Reports: Hx Fractures - Jaw Past Surgical History: Reports: Hx Orthopedic Surgery - 2 back surgeries, Hx Testicular Surgery - L testicle orchidectomy, Other - ca testis 1989 S/P orchiectomy - Immunizations Immunizations up to date: Yes Hx Diphtheria, Pertussis, Tetanus Vaccination: Yes Physical Exam - Vital signs Vitals: Temp Pulse Resp BP Pulse Ox 98.8 F 90 22 H 131/82 H 96 06/11/18 10:25 06/11/18 10:25 06/11/18 10:25 06/11/18 10:25 06/11/18 10:25 Course - Vital Signs Vital signs: Temp Pulse Resp BP Pulse Ox 98.8 F 90 22 H 131/82 H 96 06/11/18 10:25 06/11/18 10:25 06/11/18 10:25 06/11/18 10:25 06/11/18 10:25
--- NOTE | 2018-06-11 12:30 | RADIOLOGY REPORT (SQ) ---
EXAM DESCRIPTION: CHEST 2 VIEWS COMPLETED DATE/TIME: 06/11/2018 12:22 pm REASON FOR STUDY: Shortness of breath, cough COMPARISON: Two-view chest 09/29/2017, 05/03/2016, 03/20/2016 EXAM PARAMETERS: NUMBER OF VIEWS: two views TECHNIQUE: Digital Frontal and Lateral radiographic views of the chest acquired. RADIATION DOSE: NA LIMITATIONS: none FINDINGS: LUNGS AND PLEURA: No opacities, masses or pneumothorax. No pleural effusion. MEDIASTINUM AND HILAR STRUCTURES: No masses or contour abnormalities. HEART AND VASCULAR STRUCTURES: Heart normal size. No evidence for failure. BONES: No acute findings. HARDWARE: None in the chest. OTHER: No other significant finding. IMPRESSION: NO ACUTE RADIOGRAPHIC FINDING IN THE CHEST. TECHNICAL DOCUMENTATION: JOB ID: [id number] [employer]- All Rights Reserved Reading location - IP/workstation name: [email or web address]
[2018-06-11 14:16] LABS: ABSOLUTE LYMPHOCYTES (AUTO) 0.5 10^3/uL (0.5-4.7); ABSOLUTE MONOCYTES (AUTO) 0.2 10^3/uL (0.1-1.4); ABSOLUTE NEUT (AUTO) 3.3 10^3/uL (1.7-8.2); BASOPHILS % (AUTO) 0.2 % (0-2); EOSINOPHILS % (AUTO) 0.6 % (0-6); HEMATOCRIT 39.7 % (37.9-51.0); HEMOGLOBIN 13.1 g/dL (13.5-17.0); LYMPHOCYTES % (AUTO) 12.5 % (13-45); MEAN CORPUSCULAR HEMOGLOBIN 27.1 pg (27.0-33.4); MEAN CORPUSCULAR VOLUME 82 fl (80-97); MONOCYTES % (AUTO) 4.1 % (3-13); PLATELET COUNT 213 10^3/uL (150-450); RED BLOOD COUNT 4.84 10^6/uL (4.35-5.55); RED CELL DISTRIBUTION WIDTH 14.8 % (11.5-14.0); SEGMENTED NEUTROPHILS % (AUTO) 82.6 % (42-78); TOTAL CELLS COUNTED % (AUTO) 100 %
[2018-06-11 14:22] LABS: VENOUS BLOOD BASE EXCESS -1.4 mmol/L; VENOUS BLOOD HCO3 25.6 mmol/L (20-32); VENOUS BLOOD PCO2 51.8 mmHg (35-63); VENOUS BLOOD PH 7.31 (7.30-7.42)
[2018-06-11 14:39] LABS: ALANINE AMINOTRANSFERASE 36 U/L (21-72); ALBUMIN 4.4 g/dL (3.5-5.0); ALKALINE PHOSPHATASE 92 U/L (38-126); ANION GAP 14 (5-19); ASPARTATE AMINO TRANSFERASE 54 U/L (17-59); BILIRUBIN,DIRECT 0.3 mg/dL (0.0-0.4); BILIRUBIN,TOTAL 0.5 mg/dL (0.2-1.3); BLOOD UREA NITROGEN 19 mg/dL (7-20); CALCIUM 9.5 mg/dL (8.4-10.2); CARBON DIOXIDE 22 mmol/L (22-30); CHLORIDE 107 mmol/L (98-107); GLUCOSE 286 mg/dL (75-110); POTASSIUM 4.7 mmol/L (3.6-5.0); SODIUM 142.7 mmol/L (137-145); TOTAL PROTEIN 7.8 g/dL (6.3-8.2)
--- NOTE | 2018-06-11 15:51 | ER Document Report ---
ED General - General Chief Complaint: Breathing Difficulty Stated Complaint: DIFFICULTY BREATHING Time Seen by Provider: 06/11/18 11:52 Primary Care Provider: ERIC,CHLOE [Primary Care Provider] - Follow up as needed Mode of Arrival: Medic TRAVEL OUTSIDE OF THE [place] IN LAST 30 DAYS: No - HPI Notes: Patient is a 68-year-old male that presents to the emergency department for chief complaint of shortness of breath. Patient reports increased dyspnea and sputum production over the last few days. He reports cough with thick mucus production. He does have history of COPD and has been using his home aerosols every 6 hours. He reports some relief after a erosols. He denies associated fevers or chills. He does state that he is coughing so much she occasionally feels nauseated. He denies any posttussive emesis. He denies any associated chest pain but does state that his rib cage hurts when he coughs. He does report feeling better since receiving Solu-Medrol and albuterol by EMS. Past Medical History: COPD, hypertension, hyperlipidemia, diabetes Past Surgical History: Reviewed in chart Social History: Reviewed in chart Family History: Reviewed and noncontributory for presenting illness Allergies: Reviewed, see documented allergy list. REVIEW OF SYSTEMS: CONSTITUTIONAL : No fever No chills No diaphoresis No recent illness EENT: No vision changes congestion No sore throat CARDIOVASCULAR: No chest pain No palpitations RESPIRATORY: shortness of breath cough difficulty breathing GASTROINTESTINAL: No abdominal pain No nausea No vomiting No diarrhea GENITOURINARY: No dysuria No hematuria No difficulty urinating MUSCULOSKELETAL: No back pain No leg pain No arm pain SKIN: No rashes No lesions LYMPHATIC: No swollen, enlarged glands. NEUROLOGICAL: No lightheadedness No headache No weakness No paresthesias PSYCHIATRIC: No anxiety No depression PHYSICAL EXAMINATION: Vital signs reviewed, nursing noted reviewed. GENERAL: Well-appearing, well-nourished and in no acute distress. HEAD: Atraumatic, normocephalic. EYES: Eyes appear normal, extraocular movements intact, sclera anicteric, conjunctiva are normal. ENT: nares patent, oropharynx clear without exudates. Moist mucous membranes. NECK: Normal range of motion, supple without lymphadenopathy LUNGS: Breath sounds diffusely wheezy and mildly diminished. No accessory muscle use or tachypnea HEART: Regular rate and rhythm without murmurs ABDOMEN: Soft, nontender, normoactive bowel sounds. No rebound, guarding, or rigidity. No masses appreciated. EXTREMITIES: Nontender, good range of motion, no pitting or edema. NEUROLOGICAL: No focal neurological deficits. Moves all extremities spontaneously Motor and sensory grossly intact on exam. PSYCH: Normal mood, normal affect. SKIN: Warm, Dry, normal turgor, no rashes or lesions noted on exposed skin - Related Data Allergies/Adverse Reactions: No Known Allergies Allergy (Verified 06/11/18 11:44) Past Medical History - General Information source: Patient, [facility] Records - Social History Smoking Status: Never Smoker Frequency of alcohol use: None Drug Abuse: None Family History: Reviewed & Not Pertinent Patient has suicidal ideation: No Patient has homicidal ideation: No - Past Medical History Cardiac Medical History: Reports: Hx Coronary Artery Disease, Hx Hypercholesterolemia, Hx Hypertension, Hx Heart Murmur Denies: Hx Heart Attack Pulmonary Medical History: Reports: Hx Bronchitis, Hx Pneumonia Denies: Hx Asthma, Hx COPD, Hx Tuberculosis Neurological Medical History: Reports: Hx Cerebrovascular Accident, Hx Migraine - neuropathy. Denies: Hx Seizures Endocrine Medical History: Reports: Hx Diabetes Mellitus Type 1, Hx Diabetes Mellitus Type 2 Renal/ Medical History: Reports: Hx Kidney Stones. Denies: Hx Peritoneal Dialysis GI Medical History: Reports: Hx Gastroesophageal Reflux Disease, Hx Ulcer Musculoskeletal Medical History: Reports Hx Arthritis Psychiatric Medical History: Reports: Hx Depression Traumatic Medical History: Reports: Hx Fractures - Jaw Past Surgical History: Reports: Hx Orthopedic Surgery - 2 back surgeries, Hx Testicular Surgery - L testicle orchidectomy, Other - ca testis 1989 S/P orchiectomy - Immunizations Immunizations up to date: Yes Hx Diphtheria, Pertussis, Tetanus Vaccination: Yes Hx Pneumococcal Vaccination: 04/20/11 Physical Exam - Vital signs Vitals: Temp Pulse Resp BP Pulse Ox 98.8 F 90 22 H 131/82 H 96 06/11/18 10:25 06/11/18 10:25 06/11/18 10:25 06/11/18 10:25 06/11/18 10:25 Course - Re-evaluation Re-evalutation: 06/11/18 15:51 Vitals reviewed. Nursing notes reviewed. Patient is well-appearing and in no acute distress. He is oxygenating on room air. Patient had received Solu- Medrol and albuterol by EMS and another aerosol treatment by triage prior to my evaluation. He is no longer tachypneic and states he is feeling better. Chest x-ray shows no underlying pneumonia or other acute process. His lab work is unremarkable. Patient does have a history of diabetes but is now diet and exerc ise controlled. I did service counselor him while on steroids his blood sugars will elevate and we discussed at length appropriate diet for diabetes. Patient will continue to use his home nebulized albuterol every 4 hours as needed for shortness of breath. He will be started on azithromycin for complaint of increased thick sputum. Patient will follow closely with his PCP for reevaluation in the next few days. He will return to the emergency room for any new or worsening symptoms. Laboratory 06/11/18 06/11/18 06/11/18 14:01 14:01 14:01 WBC 4.0 RBC 4.84 Hgb 13.1 L Hct 39.7 MCV 82 MCH 27.1 MCHC 33.0 RDW 14.8 H Plt Count 213 Seg Neutrophils % 82.6 H Lymphocytes % 12.5 L Monocytes % 4.1 Eosinophils % 0.6 Basophils % 0.2 Absolute Neutrophils 3.3 Absolute Lymphocytes 0.5 Absolute Monocytes 0.2 Absolute Eosinophils 0.0 Absolute Basophils 0.0 VBG pH 7.31 VBG pCO2 51.8 VBG HCO3 25.6 VBG Base Excess -1.4 Sodium 142.7 Potassium 4.7 Chloride 107 Carbon Dioxide 22 Anion Gap 14 BUN 19 Creatinine 0.88 Est GFR ( Amer) > 60 Est GFR (Non-Af Amer) > 60 Glucose 286 H Calcium 9.5 Total Bilirubin 0.5 Direct Bilirubin 0.3 Neonat Total Bilirubin Not Reportable Neonat Direct Bilirubin Not Reportable Neonat Indirect Bili Not Reportable AST 54 ALT 36 Alkaline Phosphatase 92 Total Protein 7.8 Albumin 4.4 Chest X-Ray 06/11/18 11:56 IMPRESSION: NO ACUTE RADIOGRAPHIC FINDING IN THE CHEST. - Vital Signs Vital signs: Temp Pulse Resp BP Pulse Ox 98.8 F 90 22 H 131/82 H 96 06/11/18 10:25 06/11/18 10:25 06/11/18 10:25 06/11/18 10:25 06/11/18 10:25 - Laboratory Result Diagrams: 06/11/18 14:01 06/11/18 14:01 Laboratory results interpreted by me: 06/11/18 06/11/18 14:01 14:01 Hgb 13.1 L RDW 14.8 H Seg Neutrophils % 82.6 H Lymphocytes % 12.5 L Glucose 286 H Discharge - Discharge Clinical Impression: COPD exacerbation Condition: Stable Disposition: HOME, SELF-CARE Instructions: Chronic Obstructive Lung Disease ([facility]) Additional Instructions: Please return to the emergency department if you have any worsening, or concern of your symptoms. Please return to the emergency department if you develop chest pain, difficulty breathing, severe abdominal pain, or ongoing vomiting. Please follow-up with your primary care physician in 2-3 days and any other recommended physicians. If prescribed, take all medications as directed. If you have any questions or concerns do not hesitate to return the emergency department for evaluation. Use your home albuterol inhaler every 4 hours as needed for cough and shortness of breath. Eat a good diabetic diet including avoiding any carbohydrates and sugars while on steroids. The steroids will make your blood sugars go high, this should return to your normal blood sugar after he stopped taking the steroids. Prescriptions: Azithromycin [Zithromax 250 mg Tablet] 250 mg PO ASDIR PRN #6 tablet PRN Reason: Prednisone [Deltasone] 40 mg PO DAILY #10 tablet [facility]errals: [facility] [Primary [facility]] - Follow up in 3-5 days
[2018-06-11 15:56] VITALS: BP 141/85
--- NOTE | 2018-06-13 10:19 | EKG REPORT ---
SEVERITY:- ABNORMAL ECG - SINUS RHYTHM PROBABLE LEFT ATRIAL ABNORMALITY PROBABLE LEFT VENTRICULAR HYPERTROPHY : Confirmed by: Michael Espinoza 13-Jun-2018 10:18:23
== END 2018-06-11 16:00 | disposition home or self-care (01) ==
LOC: ER 10:18
DX: J44.1 Chronic obstructive pulmonary disease with (acute) exacerbation (principal); I10 Essential (primary) hypertension; E78.00 Pure hypercholesterolemia, unspecified; E11.9 Type 2 diabetes mellitus without complications; I25.10 Atherosclerotic heart disease of native coronary artery without angina pectoris; Z86.73 Personal history of transient ischemic attack (TIA), and cerebral infarction without residual deficits; Z87.442 Personal history of urinary calculi
CPT/HCPCS: 93005; 94640; 99285; 36415; 85025; 80053; 82803; 71046; 93010; J7620

== ENCOUNTER 2019-03-02 12:03 | Emergency (ER) | payer OTHER, MEDICARE ==
[2019-03-02] MEDS ORDERED: NORMAL SALINE 1000 ML 1,000 ML IV ONE ×2 (12:18→15:06)
[2019-03-02] MEDS ORDERED: ONDANSETRON HCL INJ/PF 4 MG/2 ML SDV IV ONE (12:19)
--- NOTE | 2019-03-02 12:23 | ER Document Report ---
ED Medical Screen (RME) - General Chief Complaint: Nausea/Vomiting/Diarrhea Stated Complaint: NAUSEA Time Seen by Provider: 03/02/19 12:12 Primary Care Provider: CHLOE REYES [Primary Care Provider] - Follow up as needed Notes: 68-year-old male with hypertension diabetes presents to the emergency department nausea, vomiting, and diarrhea since yesterday. Patient states symptoms started abruptly and has associated sweats and chills. Patient states any time "a little bit of water touches my lips" he vomits. He states that he has a sour, acidic taste in his mouth. Denies abdominal pain, denies blood in stool or v omit. No sick contacts, no changes to diet. Exam: Mildly ill-appearing in no acute distress, lungs are clear to auscultation all lott, S1-S2 heard and tachycardic I have greeted and performed a rapid initial assessment of this patient. A comprehensive ED assessment and evaluation of the patient, analysis of test results and completion of medical decision making process will be conducted by a n additional ED providers. TRAVEL OUTSIDE OF THE [place] IN LAST 30 DAYS: No - Related Data Allergies/Adverse Reactions: No Known Allergies Allergy (Verified 06/11/18 11:44) Home Medications: insulin Past Medical History - Social History Chew tobacco use (# tins/day): No Frequency of alcohol use: Social - Past Medical History Cardiac Medical History: Reports: Hx Coronary Artery Disease, Hx Hypercholesterolemia, Hx Hypertension, Hx Heart Murmur Denies: Hx Heart Attack Pulmonary Medical History: Reports: Hx Bronchitis, Hx Pneumonia Denies: Hx Asthma, Hx COPD, Hx Tuberculosis Neurological Medical History: Reports: Hx Cerebrovascular Accident, Hx Migraine - neuropathy. Denies: Hx Seizures Endocrine Medical History: Reports: Hx Diabetes Mellitus Type 1, Hx Diabetes Mellitus Type 2 Renal/ Medical History: Reports: Hx Kidney Stones. Denies: Hx Peritoneal Dialysis GI Medical History: Reports: Hx Gastroesophageal Reflux Disease, Hx Ulcer Musculoskeltal Medical History: Reports Hx Arthritis Psychiatric Medical History: Reports: Hx Depression Traumatic Medical History: Reports: Hx Fractures - Jaw Past Surgical History: Reports: Hx Orthopedic Surgery - 2 back surgeries, Hx Testicular Surgery - L testicle orchidectomy, Other - ca testis 1989 S/P orchiectomy - Immunizations Immunizations up to date: Yes Hx Diphtheria, Pertussis, Tetanus Vaccination: Yes Physical Exam - Vital signs Vitals: Temp Pulse Resp BP Pulse Ox 97.9 F 110 H 16 144/90 H 98 03/02/19 12:06 03/02/19 12:06 03/02/19 12:06 03/02/19 12:06 03/02/19 12:06 Course - Vital Signs Vital signs: Temp Pulse Resp BP Pulse Ox 97.9 F 110 H 16 144/90 H 98 03/02/19 12:06 03/02/19 12:06 03/02/19 12:06 03/02/19 12:06 03/02/19 12:06 Doctor's Discharge - Discharge Referrals: [facility] [Primary [facility]] - Follow up as needed
[2019-03-02 13:00] LABS: ABSOLUTE EOSINOPHILS # (AUTO) 0.4 10^3/uL (0.0-0.6); ABSOLUTE LYMPHOCYTES (AUTO) 0.9 10^3/uL (0.5-4.7); ABSOLUTE MONOCYTES (AUTO) 0.6 10^3/uL (0.1-1.4); ABSOLUTE NEUT (AUTO) 5.4 10^3/uL (1.7-8.2); BASOPHILS % (AUTO) 0.1 % (0-2); EOSINOPHILS % (AUTO) 4.9 % (0-6); HEMATOCRIT 49.6 % (37.9-51.0); HEMOGLOBIN 16.4 g/dL (13.5-17.0); LYMPHOCYTES % (AUTO) 12.1 % (13-45); MEAN CORPUSCULAR HEMOGLOBIN 27.1 pg (27.0-33.4); MEAN CORPUSCULAR HGB CONC 33.1 g/dL (32.0-36.0); MEAN CORPUSCULAR VOLUME 82 fl (80-97); MONOCYTES % (AUTO) 8.1 % (3-13); PLATELET COUNT 239 10^3/uL (150-450); RED BLOOD COUNT 6.06 10^6/uL (4.35-5.55); RED CELL DISTRIBUTION WIDTH 15.4 % (11.5-14.0); SEGMENTED NEUTROPHILS % (AUTO) 74.8 % (42-78); TOTAL CELLS COUNTED % (AUTO) 100 %; WHITE BLOOD COUNT 7.3 10^3/uL (4.0-10.5)
[2019-03-02 13:17] LABS: ALBUMIN 4.8 g/dL (3.5-5.0); ALKALINE PHOSPHATASE 91 U/L (38-126); ANION GAP 14 (5-19); ASPARTATE AMINO TRANSFERASE 32 U/L (17-59); BILIRUBIN,DIRECT 0.3 mg/dL (0.0-0.4); BILIRUBIN,TOTAL 1.4 mg/dL (0.2-1.3); BLOOD UREA NITROGEN 22 mg/dL (7-20); CALCIUM 9.8 mg/dL (8.4-10.2); CARBON DIOXIDE 27 mmol/L (22-30); CHLORIDE 97 mmol/L (98-107); GLUCOSE 249 mg/dL (75-110); POTASSIUM 4.5 mmol/L (3.6-5.0); TOTAL PROTEIN 8.6 g/dL (6.3-8.2)
[2019-03-02 15:03] LABS: APPEARANCE,URINE SLIGHTLY-CLOUDY; BILIRUBIN,URINE NEGATIVE (NEGATIVE); COLOR,URINE AMBER; GLUCOSE, URINE 50 mg/dL (NEGATIVE); KETONES,URINE TRACE mg/dL (NEGATIVE); LEUKOCYTE ESTERASE,URINE NEGATIVE (NEGATIVE); NITRITE,URINE NEGATIVE (NEGATIVE); PROTEIN,URINE 30 mg/dL (NEGATIVE); URINE SPECIFIC GRAVITY 1.029; UROBILINOGEN,URINE NEGATIVE mg/dL (<2.0)
[2019-03-02] MEDS ORDERED: METOCLOPRAMIDE HCL INJ/PF 10 MG/2 ML SDV IV ONE (15:05)
--- NOTE | 2019-03-02 15:41 | ER Document Report ---
ED GI/ - General Chief Complaint: Nausea/Vomiting/Diarrhea Stated Complaint: NAUSEA Time Seen by Provider: 03/02/19 12:12 Primary Care Provider: [facility] [Primary [facility]] - Follow up as needed Mode of Arrival: Ambulatory Information source: Patient Notes: 68-year-old male with hypertension diabetes presents to the emergency department nausea, vomiting, and diarrhea since yesterday. Patient states symptoms started abruptly and has associated sweats and chills. Patient states any time "a little bit of water touches my lips" he vomits. He states that he has a sour, acidic taste in his mouth. Denies abdominal pain, denies blood in stool or vomit. No sick contacts, no changes to diet. TRAVEL OUTSIDE OF THE [place] IN LAST 30 DAYS: No - Related Data Allergies/Adverse Reactions: No Known Allergies Allergy (Verified 06/11/18 11:44) Home Medications: insulin Past Medical History - General Information source: Patient - Social History Smoking Status: Never Smoker Chew tobacco use (# tins/day): No Frequency of alcohol use: Social Family History: Reviewed & Not Pertinent Patient has suicidal ideation: No Patient has homicidal ideation: No - Past Medical History Cardiac Medical History: Reports: Hx Coronary Artery Disease, Hx Hypercholesterolemia, Hx Hypertension, Hx Heart Murmur Denies: Hx Heart Attack Pulmonary Medical History: Reports: Hx Bronchitis, Hx Pneumonia Denies: Hx Asthma, Hx COPD, Hx Tuberculosis Neurological Medical History: Reports: Hx Cerebrovascular Accident, Hx Migraine - neuropathy. Denies: Hx Seizures Endocrine Medical History: Reports: Hx Diabetes Mellitus Type 1, Hx Diabetes M ellitus Type 2 Renal/ Medical History: Reports: Hx Kidney Stones. Denies: Hx Peritoneal Dialysis GI Medical History: Reports: Hx Gastroesophageal Reflux Disease, Hx Ulcer Musculoskeletal Medical History: Reports Hx Arthritis Psychiatric Medical History: Reports: Hx Depression Traumatic Medical History: Reports: Hx Fractures - Jaw Past Surgical History: Reports: Hx Orthopedic Surgery - 2 back surgeries, Hx Testicular Surgery - L testicle orchidectomy, Other - 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 - Immunizations Immunizations up to date: Yes Hx Diphtheria, Pertussis, Tetanus Vaccination: Yes Hx Pneumococcal Vaccination: 04/20/11 Review of Systems - Review of Systems Constitutional: No symptoms reported EENT: No symptoms reported Cardiovascular: No symptoms reported Respiratory: No symptoms reported Gastrointestinal: Abdominal pain, Diarrhea, Nausea, Vomiting Genitourinary: No symptoms reported Male Genitourinary: No symptoms reported Musculoskeletal: No symptoms reported Skin: No symptoms reported Hematologic/Lymphatic: No symptoms reported Neurological/Psychological: No symptoms reported Physical Exam - Vital signs Vitals: Temp Pulse Resp BP Pulse Ox 97.9 F 110 H 16 144/90 H 98 03/02/19 12:06 03/02/19 12:06 03/02/19 12:06 03/02/19 12:06 03/02/19 12:06 - Notes Notes: PHYSICAL EXAMINATION: GENERAL: Well-appearing, well-nourished. HEAD: Atraumatic, normocephalic. EYES: Pupils equal round and reactive to light, extraocular movements intact, sclera anicteric, conjunctiva are normal. ENT: Nares patent, oropharynx clear without exudates. Moist mucous membranes. NECK: Normal range of motion, supple without lymphadenopathy LUNGS: Breath sounds clear to auscultation bilaterally and equal. No wheezes rales or rhonchi. HEART: Regular rate and rhythm without murmurs ABDOMEN: Soft, nondistended abdomen. Mild generalized tenderness to palpation. No guarding, no rebound. No masses appreciated. Musculoskeletal: Normal range of motion, no pitting or edema. No cyanosis. NEUROLOGICAL: Cranial nerves grossly intact. Normal speech, normal gait. Normal sensory, motor exams PSYCH: Normal mood, normal affect. SKIN: Warm, Dry, normal turgor, no rashes or lesions noted. Course - Re-evaluation Re-evalutation: Laboratory 03/02/19 03/02/19 03/02/19 12:44 12:44 14:36 WBC 7.3 RBC 6.06 H Hgb 16.4 Hct 49.6 MCV 82 MCH 27.1 MCHC 33.1 RDW 15.4 H Plt Count 239 Lymph % (Auto) 12.1 L [place] % (Auto) 8.1 Eos % (Auto) 4.9 Baso % (Auto) 0.1 Absolute Neuts (auto) 5.4 Absolute Lymphs (auto) 0.9 Absolute Monos (auto) 0.6 Absolute Eos (auto) 0.4 Absolute Basos (auto) 0.0 Seg Neutrophils % 74.8 Sodium 138.2 Potassium 4.5 Chloride 97 L Carbon Dioxide 27 Anion Gap 14 BUN 22 H Creatinine 1.17 Est GFR ( Amer) > 60 Est GFR (MDRD) Non-Af > 60 Glucose 249 H Calcium 9.8 Total Bilirubin 1.4 H Direct Bilirubin 0.3 Neonat Total Bilirubin Not Reportable Neonat Direct Bilirubin Not Reportable Neonat Indirect Bili Not Reportable AST 32 ALT 21 Alkaline Phosphatase 91 Total Protein 8.6 H Albumin 4.8 Lipase 95.6 Urine Color [place] Urine Appearance SLIGHTLY-CLOUDY Urine pH 5.0 Ur Specific [place] 1.029 Urine Protein 30 H Urine Glucose (UA) 50 H Urine Ketones TRACE H Urine Blood NEGATIVE Urine Nitrite NEGATIVE Urine Bilirubin NEGATIVE Urine Urobilinogen NEGATIVE Ur Leukocyte Esterase NEGATIVE Urine WBC (Auto) 2 Urine RBC (Auto) 59 U Hyaline Cast (Auto) 7 Squamous Epi Cells Auto <1 Urine Mucus (Auto) MANY Urine Ascorbic Acid 40 H Abdomen/Pelvis CT 03/02/19 15:06 IMPRESSION: The presence of fluid levels within the sigmoid colon suggests diarrheal state. Otherwise stable CT appearance of the abdomen and pelvis. Patient given IV fluids here in the emergency department. Patient also given antiemetics. Patient reports that he feels much better however he still feels like he is going to have diarrhea. Patient will be given dose of loperamide and be discharged home with antiemetics. CT the abdomen pelvis as outlined above does not show any acute or life-threatening etiologies. Likely viral gastroenteritis. Patient tolerated p.o. fluids prior to discharge. - Vital Signs Vital signs: Temp Pulse Resp BP Pulse Ox 98.5 F 86 14 126/78 H 93 03/02/19 20:01 03/02/19 20:01 03/02/19 20:01 03/02/19 20:01 03/02/19 20:01 - Laboratory Result Diagrams: 03/02/19 12:44 03/02/19 12:44 Laboratory results interpreted by me: 03/02/19 03/02/19 03/02/19 12:44 12:44 14:36 RBC 6.06 H RDW 15.4 H Lymph % (Auto) 12.1 L Chloride 97 L BUN 22 H Glucose 249 H Total Bilirubin 1.4 H Total Protein 8.6 H Urine Protein 30 H Urine Glucose (UA) 50 H Urine Ketones TRACE H Urine Ascorbic Acid 40 H Discharge - Discharge Clinical Impression: Nausea vomiting and diarrhea, Gastroenteritis Condition: Stable Disposition: HOME, SELF-CARE Additional Instructions: The CAT scan of your abdomen was normal. I believe you are suffering from a viral gastroenteritis that is causing the nausea, vomiting and diarrhea. You were given a dose of antidiarrheal medication here in the emergency department to slow down the diarrhea. I also sent you home with a prescription and take- home pack of a antinausea medication to help with the vomiting. Please continue to drink as much fluid as possible, water or Gatorade would be best. Return to the emergency department with any new or worsening symptoms to include persistent vomiting despite taking the medication, development of abdominal pain or fever. We are happy to reevaluate you at any time. Prescriptions: Ondansetron [Zofran Odt 4 mg Tablet] 1 - 2 tab PO Q4H PRN #15 tab.rapdis PRN Reason: For Nausea/Vomiting [facility]errals: [facility] [[facility]] - Follow up as needed
--- NOTE | 2019-03-02 17:56 | RADIOLOGY REPORT (SQ) ---
EXAM DESCRIPTION: CT ABD/PELVIS WITH IV ONLY COMPLETED DATE/TIME: 03/02/2019 5:01 pm REASON FOR STUDY: abdominal pain COMPARISON: None. TECHNIQUE: CT scan of the abdomen and pelvis performed using helical scanning technique with dynamic intravenous contrast injection. No oral contrast. Images reviewed with lung, soft tissue, and bone windows. Reconstructed coronal and sagittal MPR images reviewed. Delayed images for evaluation of the urinary system also acquired. All images stored on PACS. All CT scanners at this facility use dose modulation, iterative reconstruction, and/or weight based d osing when appropriate to reduce radiation dose to as low as reasonably achievable (ALARA). [facility]: Dose Right [facility]: CareDose [facility]: Dose Right [facility]: Teradose 4D [facility]: Masher CONTRAST TYPE AND DOSE: contrast/concentration: Isovue 350.00 mg/ml; Total Contrast Delivered: 88.0 ml; Total Saline Delivered: 70.0 ml RENAL FUNCTION: BUN 22; creatinine 1.17 RADIATION DOSE: CT Rad equipment meets quality standard of care and radiation dose reduction techniq ues were employed. CTDIvol: 7.0 - 9.9 mGy. DLP: 956 mGy-cm.. LIMITATIONS: None. FINDINGS: LOWER CHEST: No significant findings. No nodules or infiltrates. LIVER: Normal size. No masses. No dilated ducts. SPLEEN: Normal size. No focal lesions. PANCREAS: No masses. No significant calcifications. No adjacent inflammation or peripancreatic fluid collections. Pancreatic duct not dilated. GALLBLADDER: No identified stones by CT criteria. No inflammatory changes to suggest cholecystitis. ADRENAL GLANDS: No significant masses or asymmetry. RIGHT KIDNEY AND URETER: No solid masses. Nonobstructing nephrolith is seen within the inferior danilo e collecting system. No hydronephrosis or hydroureter. LEFT KIDNEY AND URETER: No solid masses. A punctate nonobstructing nephrolith is seen within the alexander perior pole collecting system. No hydronephrosis or hydroureter. AORTA AND VESSELS: No aneurysm. No dissection. Renal arteries, SMA, celiac without stenosis. RETROPERITONEUM: No retroperitoneal adenopathy, hemorrhage or masses. BOWEL AND PERITONEAL CAVITY: Scattered colonic diverticula without acute inflammatory changes. The s igmoid colon demonstrates air-fluid levels, suggesting diarrheal state. APPENDIX: Normal. PELVIS: No mass. No free fluid. Normal bladder. ABDOMINAL WALL: Tiny fat containing umbilical hernia. BONES: No significant or acute findings. OTHER: No other significant finding. IMPRESSION: The presence of fluid levels within the sigmoid colon suggests diarrheal state. Otherwi se stable CT appearance of the abdomen and pelvis. TECHNICAL DOCUMENTATION: JOB ID: [id number] Quality ID # [id number]: Final reports with documentation of one or more dose reduction techniques (e.g., Au tomated exposure control, adjustment of the mA and/or kV according to patient size, use of iterative reconstruction technique) 2010 [employer]- All Rights Reserved Reading location - IP/workstation name: [email or web address]
[2019-03-02] MEDS ORDERED: LOPERAMIDE HCL 2 MG CAPSULE PO ONE (19:53)
[2019-03-02] MEDS ORDERED: ONDANSETRON ODT 4 MG TAB (6 TAB/ER DISP) PO PRN (19:53)
[2019-03-02 20:04] VITALS: BP 126/78
--- NOTE | 2019-03-03 01:15 | EKG REPORT ---
SEVERITY:- ABNORMAL ECG - SINUS TACHYCARDIA PROBABLE LVH WITH SECONDARY REPOL ABNRM : Confirmed by: Nlel Malone MD 03-Mar-2019 01:14:22
== END 2019-03-02 20:06 | disposition home or self-care (01) ==
LOC: ER 12:03
DX: K52.9 Noninfective gastroenteritis and colitis, unspecified (principal); R11.2 Nausea with vomiting, unspecified; E11.9 Type 2 diabetes mellitus without complications; I10 Essential (primary) hypertension; I25.10 Atherosclerotic heart disease of native coronary artery without angina pectoris; E78.00 Pure hypercholesterolemia, unspecified; Z86.73 Personal history of transient ischemic attack (TIA), and cerebral infarction without residual deficits; Z87.442 Personal history of urinary calculi; Z85.47 Personal history of malignant neoplasm of testis
CPT/HCPCS: 93005; 99284; 96361; 96374; 96375; 36415; 83690; 85025; 80053; 81001; 74177; 93010; J2765; J2405; J7030

== ENCOUNTER 2019-05-03 12:37 | Emergency (ER) | payer OTHER, MEDICARE ==
--- NOTE | 2019-05-03 12:47 | ER Document Report ---
ED Medical Screen (RME) - General Chief Complaint: High Blood Pressure Stated Complaint: BLOOD PRESSURE CONCERN Time Seen by Provider: 05/03/19 12:42 Primary Care Provider: CHLOE REYES [Primary Care Provider] - Follow up as needed TRAVEL OUTSIDE OF THE [place] IN LAST 30 DAYS: No - HPI Notes: 05/03/19 12:45 Patient is a 69-year-old male with a history of COPD, hypertension, hyperli pidemia, diabetes who presents per the direction of his family doctor for elevated blood pressure (triple/triple) over the past 3 days with a lingering headache. Patient states that the headache is not the worst of his life and did not start as a thunderclap. Denies drug allergies. He does take his blood pressure medicines daily. He is able to eat and drink without difficulty. He is urinating normally. No fever, neck pain, chest pain, shortness of breath, abdominal pain. I have treated and performed a rapid initial assessment of this patient. A comprehensive ED assessment and evaluation of the patient, analysis of test results and completion of medical decision making process will be conducted by additional ED providers. PHYSICAL EXAMINATION: GENERAL: Well-appearing, well-nourished and in no acute distress. A&Ox4. Answers questions appropriately. Heart: RRR Neuro: Cranial nerves grossly intact. - Related Data Allergies/Adverse Reactions: No Known Allergies Allergy (Verified 06/11/18 11:44) Past Medical History - Past Medical History Cardiac Medical History: Reports: Hx Coronary Artery Disease, Hx Hypercholesterolemia, Hx Hypertension, Hx Heart Murmur Denies: Hx Heart Attack Pulmonary Medical History: Reports: Hx Bronchitis, Hx Pneumonia Denies: Hx Asthma, Hx COPD, Hx Tuberculosis Neurological Medical History: Reports: Hx Cerebrovascular Accident, Hx Migraine - neuropathy. Denies: Hx Seizures Endocrine Medical History: Reports: Hx Diabetes Mellitus Type 1, Hx Diabetes Mellitus Type 2 Renal/ Medical History: Reports: Hx Kidney Stones. Denies: Hx Peritoneal Dialysis GI Medical History: Reports: Hx Gastroesophageal Reflux Disease, Hx Ulcer Musculoskeltal Medical History: Reports Hx Arthritis Psychiatric Medical History: Reports: Hx Depression Traumatic Medical History: Reports: Hx Fractures - Jaw Past Surgical History: Reports: Hx Orthopedic Surgery - 2 back surgeries, Hx Testicular Surgery - L testicle orchidectomy, Other - ca testis 1989 S/P orchiectomy - Immunizations Immunizations up to date: Yes Hx Diphtheria, Pertussis, Tetanus Vaccination: Yes Physical Exam - Vital signs Vitals: Temp Pulse Resp BP Pulse Ox 97.9 F 64 18 179/99 H 98 05/03/19 12:41 05/03/19 12:41 05/03/19 12:41 05/03/19 12:41 05/03/19 12:41 Course - Vital Signs Vital signs: Temp Pulse Resp BP Pulse Ox 97.9 F 64 18 179/99 H 98 05/03/19 12:41 05/03/19 12:41 05/03/19 12:41 05/03/19 12:41 05/03/19 12:41 Doctor's Discharge - Discharge [facility] - Follow up as needed
[2019-05-03 13:32] LABS: ABSOLUTE BASOPHILS # (AUTO) 0.1 10^3/uL (0.0-0.2); ABSOLUTE EOSINOPHILS # (AUTO) 0.9 10^3/uL (0.0-0.6); ABSOLUTE LYMPHOCYTES (AUTO) 1.3 10^3/uL (0.5-4.7); ABSOLUTE MONOCYTES (AUTO) 0.4 10^3/uL (0.1-1.4); ABSOLUTE NEUT (AUTO) 1.9 10^3/uL (1.7-8.2); BASOPHILS % (AUTO) 1.2 % (0-2); EOSINOPHILS % (AUTO) 20.3 % (0-6); HEMATOCRIT 41.6 % (37.9-51.0); HEMOGLOBIN 13.9 g/dL (13.5-17.0); LYMPHOCYTES % (AUTO) 28.2 % (13-45); MEAN CORPUSCULAR HEMOGLOBIN 27.2 pg (27.0-33.4); MEAN CORPUSCULAR HGB CONC 33.5 g/dL (32.0-36.0); MEAN CORPUSCULAR VOLUME 81 fl (80-97); MONOCYTES % (AUTO) 8.1 % (3-13); PLATELET COUNT 183 10^3/uL (150-450); RED BLOOD COUNT 5.12 10^6/uL (4.35-5.55); RED CELL DISTRIBUTION WIDTH 15.1 % (11.5-14.0); SEGMENTED NEUTROPHILS % (AUTO) 42.2 % (42-78); TOTAL CELLS COUNTED % (AUTO) 100 %; WHITE BLOOD COUNT 4.5 10^3/uL (4.0-10.5)
[2019-05-03 13:36] LABS: APPEARANCE,URINE CLEAR; BILIRUBIN,URINE NEGATIVE (NEGATIVE); COLOR,URINE YELLOW; GLUCOSE, URINE NEGATIVE (NEGATIVE); KETONES,URINE NEGATIVE (NEGATIVE); PROTEIN,URINE NEGATIVE (NEGATIVE); URINE SPECIFIC GRAVITY 1.015; UROBILINOGEN,URINE NEGATIVE mg/dL (<2.0)
[2019-05-03 13:53] LABS: ALBUMIN 4.2 g/dL (3.5-5.0); ALKALINE PHOSPHATASE 101 U/L (38-126); ANION GAP 8 (5-19); ASPARTATE AMINO TRANSFERASE 31 U/L (17-59); BILIRUBIN,DIRECT 0.3 mg/dL (0.0-0.4); BILIRUBIN,TOTAL 0.4 mg/dL (0.2-1.3); BLOOD UREA NITROGEN 14 mg/dL (7-20); CALCIUM 9.9 mg/dL (8.4-10.2); CARBON DIOXIDE 34 mmol/L (22-30); CHLORIDE 96 mmol/L (98-107); GLUCOSE 137 mg/dL (75-110); POTASSIUM 4.4 mmol/L (3.6-5.0); TOTAL PROTEIN 7.7 g/dL (6.3-8.2)
[2019-05-03 16:11] VITALS: BP 139/91
--- NOTE | 2019-05-03 16:39 | ER Document Report ---
ED General - General Chief Complaint: High Blood Pressure Stated Complaint: BLOOD PRESSURE CONCERN Time Seen by Provider: 05/03/19 12:42 Primary Care Provider: [facility] [Primary Care Provider] - Follow up as needed Notes: 69-year-old man presents to the emergency department with a complaint that his blood pressure is elevated. States that he took his usual medications this morning and has been getting elevated readings. He denies chest pain, shortness of breath or palpitations. In the emergency department blood pressure was noted to be 179/99 and the patient was asymptomatic. Repeat blood pressure sometimes later revealed a blood pressure of 139/91. Apparently he has run out of amlodipine 10 mg tablets for the past week. He did take HCTZ 25 mg this morning. He was seen at the [facility] earlier today and was directed to the emergency department. He notes episodes of headache over the past 3 days and elevated blood pressure. He has contacted the [facility] in [place] and they are in the process of sending him refills of medications. History of COPD, hypertension, diabetes mellitus. TRAVEL OUTSIDE OF THE [place] IN LAST 30 DAYS: No - Related Data Allergies/Adverse Reactions: No Known Allergies Allergy (Verified 06/11/18 11:44) Home Medications: ASA, Past Medical History - Social History Smoking Status: Never Smoker Family History: Reviewed & Not Pertinent Patient has suicidal ideation: No Patient has homicidal ideation: No - Past Medical History Cardiac Medical History: Reports: Hx Coronary Artery Disease, Hx Hypercholesterolemia, Hx Hypertension, Hx Heart Murmur Denies: Hx Heart Attack Pulmonary Medical History: Reports: Hx Bronchitis, Hx Pneumonia Denies: Hx Asthma, Hx COPD, Hx Tuberculosis Neurological Medical History: Reports: Hx Cerebrovascular Accident, Hx Migraine - neuropathy. Denies: Hx Seizures Endocrine Medical History: Reports: Hx Diabetes Mellitus Type 1, Hx Diabetes Mellitus Type 2 Renal/ Medical History: Reports: Hx Kidney Stones. Denies: Hx Peritoneal Dialysis GI Medical History: Reports: Hx Gastroesophageal Reflux Disease, Hx Ulcer Musculoskeletal Medical History: Reports Hx Arthritis Psychiatric Medical History: Reports: Hx Depression Traumatic Medical History: Reports: Hx Fractures - Jaw Past Surgical History: Reports: Hx Orthopedic Surgery - 2 back surgeries, Hx Testicular Surgery - L testicle orchidectomy, Other - ca testis 1989 S/P orchiectomy - Immunizations Immunizations up to date: Yes Hx Diphtheria, Pertussis, Tetanus Vaccination: Yes Hx Pneumococcal Vaccination: 04/20/11 Review of Systems - Review of Systems Notes: Constitutional: + Concern regarding blood pressure elevation. HENT: Negative for sore throat. Eyes: Negative for visual changes. Cardiovascular: Negative for chest pain. Respiratory: Negative for shortness of breath. Gastrointestinal: Negative for abdominal pain, vomiting or diarrhea. Genitourinary: Negative for dysuria. Musculoskeletal: Negative for back pain. Skin: Negative for rash. Neurological: Negative for headaches, weakness or numbness. 10 point ROS negative except as marked above and in HPI. Physical Exam - Vital signs Vitals: Temp Pulse Resp BP Pulse Ox 97.9 F 64 18 179/99 H 98 05/03/19 12:41 05/03/19 12:41 05/03/19 12:41 05/03/19 12:41 05/03/19 12:41 - Notes Notes: PHYSICAL EXAMINATION: Physical Exam: General: Well-nourished well-developed in no acute distress HEENT: NC/AT, pupils equal round and reactive to light, MM moist,nares clear, Neck: supple, no adenopathy, no masses. Lungs: clear, no wheezing, no rales no rhonchi CVS: Regular rate and rhythm no murmur gallop or rub Abdomen: Soft active nontender, no masses, no hepatosplenomegaly Ext: No edema clubbing or cyanosis. Neuro: Alert and responsive, moving all 4 extremities on command, cranial nerves intact. Skin: Intact no open lesions, no rash PSYCH: Normal mood, normal affect. Course - Re-evaluation Re-evalutation: 05/03/19 16:37 Patient blood pressure appears to be improved at this time, 139/91. I have discussed with him the need to follow-up with his primary care doctor for medication adjustment, however, given the values that were seen there is no need for acute intervention at this time. Patient is given amlodipine 10 mg in the emergency department and a prescription for amlodipine and HCTZ is written for his short-term use. 05/03/19 17:24 Patient is being discharged home I have instructed him to get the prescriptions filled and to take the medication as prescribed until his new orders from the [facility] arrived. Patient acknowledges understanding of this plan and is in agreement. - Vital Signs Vital signs: Temp Pulse Resp BP Pulse Ox 97.9 F 84 18 139/91 H 96 05/03/19 12:41 05/03/19 16:09 05/03/19 16:09 05/03/19 16:09 05/03/19 16:09 - Laboratory Result Diagrams: 05/03/19 13:16 05/03/19 13:16 Laboratory results interpreted by me: 05/03/19 05/03/19 05/03/19 13:05 13:16 13:16 RDW 15.1 H Eos % (Auto) 20.3 H Absolute Eos (auto) 0.9 H Chloride 96 L Carbon Dioxide 34 H Glucose 137 H Urine Ascorbic Acid 40 H 05/03/19 16:38 I have reviewed laboratory data and used this information for the treatment decisions regarding the patient. Discharge - Discharge Clinical Impression: Poorly-controlled hypertension, Poor compliance with medication Condition: Good Disposition: HOME, SELF-CARE Instructions: High Blood Pressure ([facility]), Hydrochlorothiazide ([facility]), Calcium Channel Blockers ([facility]) Additional Instructions: Please get the prescriptions filled for the blood pressure medications, take your blood pressure medications daily [facility], return to the emergency department if you have other concerns or questions. Referrals: [facility] [Primary [facility]] - Follow up as needed
[2019-05-03] MEDS ORDERED: AMLODIPINE BESYLATE 10 MG TABLET PO ONE (16:49)
== END 2019-05-03 17:33 | disposition home or self-care (01) ==
LOC: ER 12:37
DX: I10 Essential (primary) hypertension (principal); J44.9 Chronic obstructive pulmonary disease, unspecified; E11.9 Type 2 diabetes mellitus without complications; Z79.899 Other long term (current) drug therapy; I25.10 Atherosclerotic heart disease of native coronary artery without angina pectoris; Z91.14 Patient's other noncompliance with medication regimen
CPT/HCPCS: 36415; 80053; 81001; 82962; 85025; 99283

== ENCOUNTER 2019-08-28 09:36 | Emergency (ER) | payer OTHER, MEDICARE ==
[2019-08-28] MEDS ORDERED: ASPIRIN 81 MG TABLET, CHEWABLE PO ONE (09:56)
--- NOTE | 2019-08-28 09:58 | ER Document Report ---
ED Medical Screen (RME) - General Chief Complaint: Accidental Overdose Stated Complaint: ACCIDENTAL OVERDOSE Time Seen by Provider: 08/28/19 09:51 Primary Care Provider: ERIC,CHLOE [Primary Care Provider] - Follow up as needed Information source: Patient Notes: Patient states that about an hour ago he accidentally took 5 Viagra tablets unintentionally. Patient denies any problems with erection. Patient states that about 30 minutes ago he started to have chest tightness. Patient denies any shortness of breath nausea or vomiting. I have greeted and performed a rapid initial assessment of this patient. A comprehensive ED assessment and evaluation of the patient, analysis of test results and completion of the medical decision making process will be conducted by additional ED providers. TRAVEL OUTSIDE OF THE [place] IN LAST 30 DAYS: No - Related Data Allergies/Adverse Reactions: No Known Allergies Allergy (Verified 06/11/18 11:44) Past Medical History - Past Medical History Cardiac Medical History: Reports: Hx Coronary Artery Disease, Hx Hyper cholesterolemia, Hx Hypertension, Hx Heart Murmur Denies: Hx Heart Attack Pulmonary Medical History: Reports: Hx Bronchitis, Hx Pneumonia Denies: Hx Asthma, Hx COPD, Hx Tuberculosis Neurological Medical History: Reports: Hx Cerebrovascular Accident, Hx Migraine - neuropathy. Denies: Hx Seizures Endocrine Medical History: Reports: Hx Diabetes Mellitus Type 1, Hx Diabetes Mellitus Type 2 Renal/ Medical History: Reports: Hx Kidney Stones. Denies: Hx Peritoneal Dialysis GI Medical History: Reports: Hx Gastroesophageal Reflux Disease, Hx Ulcer Musculoskeltal Medical History: Reports Hx Arthritis Psychiatric Medical History: Reports: Hx Depression Traumatic Medical History: Reports: Hx Fractures - Jaw Past Surgical History: Reports: Hx Orthopedic Surgery - 2 back surgeries, Hx Testicular Surgery - L testicle orchidectomy, Other - ca testis 1989 S/P orchiectomy - Immunizations Immunizations up to date: Yes Hx Diphtheria, Pertussis, Tetanus Vaccination: Yes Physical Exam - Vital signs Vitals: Temp Pulse Resp BP Pulse Ox 98.3 F 87 14 145/90 H 97 08/28/19 09:42 08/28/19 09:42 08/28/19 09:42 08/28/19 09:42 08/28/19 09:42 - Respiratory Respiratory status: No respiratory distress Chest status: Tender Breath sounds: Normal. No: Nonproductive cough - Cardiovascular Rhythm: Regular Heart sounds: S1 appreciated, S2 appreciated Course - Vital Signs Vital signs: Temp Pulse Resp BP Pulse Ox 98.3 F 87 14 145/90 H 97 08/28/19 09:42 08/28/19 09:42 08/28/19 09:42 08/28/19 09:42 08/28/19 09:42 Doctor's Discharge - Discharge [facility]errals: [facility] [[facility]] - Follow up as needed
[2019-08-28 10:39] LABS: ABSOLUTE EOSINOPHILS # (AUTO) 0.5 10^3/uL (0.0-0.6); ABSOLUTE LYMPHOCYTES (AUTO) 1.2 10^3/uL (0.5-4.7); ABSOLUTE MONOCYTES (AUTO) 0.5 10^3/uL (0.1-1.4); ABSOLUTE NEUT (AUTO) 3.4 10^3/uL (1.7-8.2); BASOPHILS % (AUTO) 0.6 % (0-2); EOSINOPHILS % (AUTO) 8.8 % (0-6); HEMATOCRIT 39.1 % (37.9-51.0); HEMOGLOBIN 13.1 g/dL (13.5-17.0); LYMPHOCYTES % (AUTO) 20.9 % (13-45); MEAN CORPUSCULAR HEMOGLOBIN 28.1 pg (27.0-33.4); MEAN CORPUSCULAR HGB CONC 33.6 g/dL (32.0-36.0); MEAN CORPUSCULAR VOLUME 84 fl (80-97); MONOCYTES % (AUTO) 8.8 % (3-13); PLATELET COUNT 203 10^3/uL (150-450); RED BLOOD COUNT 4.66 10^6/uL (4.35-5.55); RED CELL DISTRIBUTION WIDTH 15.3 % (11.5-14.0); SEGMENTED NEUTROPHILS % (AUTO) 60.9 % (42-78); TOTAL CELLS COUNTED % (AUTO) 100 %; WHITE BLOOD COUNT 5.6 10^3/uL (4.0-10.5)
--- NOTE | 2019-08-28 10:44 | RADIOLOGY REPORT (SQ) ---
EXAM DESCRIPTION: CHEST 2 VIEWS IMAGES COMPLETED DATE/TIME: 08/28/2019 10:11 am REASON FOR STUDY: cp COMPARISON: PA and lateral views of the chest from 06/11/2018. EXAM PARAMETERS: NUMBER OF VIEWS: Two views. TECHNIQUE: PA and lateral views of the chest were obtained. RADIATION DOSE: NA LIMITATIONS: None. FINDINGS: LUNGS AND PLEURA: No consolidation, pleural effusion or pneumothorax. MEDIASTINUM AND HILAR STRUCTURES: No mediastinal or hilar contour abnormality. HEART AND VASCULAR STRUCTURES: The cardiac silhouette and pulmonary vasculature are within normal briscoe its. BONES: No acute findings. HARDWARE: None in the chest. OTHER: No other finding. IMPRESSION: Low inspiratory lung volumes without a superimposed acute cardiopulmonary process. TECHNICAL DOCUMENTATION: JOB ID: [id number] 2010 [employer]- All Rights Reserved Reading location - IP/workstation name: [email or web address]
[2019-08-28 10:59] LABS: ALBUMIN 4.3 g/dL (3.5-5.0); ALKALINE PHOSPHATASE 100 U/L (38-126); ANION GAP 8 (5-19); ASPARTATE AMINO TRANSFERASE 29 U/L (17-59); BILIRUBIN,TOTAL 0.4 mg/dL (0.2-1.3); BLOOD UREA NITROGEN 15 mg/dL (7-20); CALCIUM 9.6 mg/dL (8.4-10.2); CARBON DIOXIDE 30 mmol/L (22-30); CHLORIDE 97 mmol/L (98-107); GLUCOSE 209 mg/dL (75-110); POTASSIUM 4.4 mmol/L (3.6-5.0); TOTAL PROTEIN 7.6 g/dL (6.3-8.2)
[2019-08-28] MEDS ORDERED: NORMAL SALINE 1000 ML 1,000 ML IV ONE (11:25)
--- NOTE | 2019-08-28 12:07 | ER Document Report ---
ED Cardiac - General Chief Complaint: Chest Pain Stated Complaint: ACCIDENTAL OVERDOSE Time Seen by Provider: 08/28/19 09:51 Primary Care Provider: ERIC,CHLOE [Primary Care Provider] - Follow up as needed Mode of Arrival: Ambulatory Information source: Patient TRAVEL OUTSIDE OF THE [place] IN LAST 30 DAYS: No - HPI Notes: Patient arrives stating that he accidentally took too many Viagra today. He states they will be 100 mg pills. He states that he thought he was taking his other medications when he took them by accident. He states he initially had some lightheadedness right after he took them but is not had any symptoms since then. He states he took them approximately 8:30 AM this morning. Patient denies any other symptoms at this time. No pain anywhere. No current lightheadedness or dizziness. No shortness of breath. His lightheadedness was brief and intermittent. Nothing made it better or worse. There is no radiation symptoms. - Related Data Allergies/Adverse Reactions: No Known Allergies Allergy (Verified 08/28/19 11:05) Past Medical History - General Information source: Patient - Social History Smoking Status: Never Smoker Frequency of alcohol use: Occasional Drug Abuse: None, Marijuana Family History: Reviewed & Not Pertinent Patient has homicidal ideation: No - Past Medical History Cardiac Medical History: Reports: Hx Coronary Artery Disease, Hx Hypercholesterolemia, Hx Hypertension, Hx Heart Murmur Denies: Hx Heart Attack Pulmonary Medical History: Reports: Hx Bronchitis, Hx Pneumonia Denies: Hx Asthma, Hx COPD, Hx Tuberculosis Neurological Medical History: Reports: Hx Cerebrovascular Accident, Hx Migraine - neuropathy. Denies: Hx Seizures Endocrine Medical History: Reports: Hx Diabetes Mellitus Type 1, Hx Diabetes M ellitus Type 2 Renal/ Medical History: Reports: Hx Kidney Stones. Denies: Hx Peritoneal Dialysis GI Medical History: Reports: Hx Gastroesophageal Reflux Disease, Hx Ulcer Musculoskeletal Medical History: Reports Hx Arthritis Psychiatric Medical History: Reports: Hx Depression Traumatic Medical History: Reports: Hx Fractures - Jaw Past Surgical History: Reports: Hx Orthopedic Surgery - 2 back surgeries, Hx Testicular Surgery - L testicle orchidectomy, Other - 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 - Immunizations Immunizations up to date: Yes Hx Diphtheria, Pertussis, Tetanus Vaccination: Yes Hx Pneumococcal Vaccination: 04/20/11 Review of Systems - Review of Systems Constitutional: denies: Chills, Fever Cardiovascular: denies: Chest pain, Palpitations Respiratory: denies: Cough, Short of breath -: Yes All other systems reviewed and negative Physical Exam - Vital signs Vitals: Temp Pulse Resp BP Pulse Ox 98.3 F 87 14 145/90 H 97 08/28/19 09:42 08/28/19 09:42 08/28/19 09:42 08/28/19 09:42 08/28/19 09:42 Interpretation: Normal - General General appearance: Appears well, Alert - HEENT Head: Normocephalic, Atraumatic Eyes: Normal Pupils: PERRL - Respiratory Respiratory status: No respiratory distress Chest status: Nontender Breath sounds: Normal Chest palpation: Normal - Cardiovascular Rhythm: Regular Heart sounds: Normal auscultation Murmur: No - Abdominal Inspection: Normal Distension: No distension Bowel sounds: Normal Tenderness: Nontender Organomegaly: No organomegaly - Back Back: Normal, Nontender - Extremities General upper extremity: Normal inspection, Nontender, Normal color, Normal ROM, Normal temperature General lower extremity: Normal inspection, Nontender, Normal color, Normal ROM, Normal temperature, Normal weight bearing. No: Brent's sign - Neurological Neuro grossly intact: Yes Cognition: Normal Orientation: AAOx4 [place] Coma Scale Eye Opening: Spontaneous [place] Coma Scale Verbal: Oriented [place] Coma Scale Motor: Obeys Commands [place] Coma Scale Total: 15 Speech: Normal Motor strength normal: LUE, RUE, LLE, RLE Sensory: Normal - Psychological Associated symptoms: Normal affect, Normal mood - Skin Skin Temperature: Warm Skin Moisture: Dry Skin Color: Normal Course - Re-evaluation Re-evalutation: 08/28/19 12:06 I called and discussed the case with poison control. Patient will have to be observed for 6 hours per poison control. Patient received a liter of fluid here and at this time I do not feel that labs or imaging will be helpful. 08/28/19 13:41 Patient is currently resting comfortably in the bed with no complaints. His blood pressure is 128/84. His heart rate is 85. Patient will be turned over to Dr. Ragsdale for further observation. - Vital Signs Vital signs: Temp Pulse Resp BP Pulse Ox 98.2 F 87 13 128/84 H 99 08/28/19 13:00 08/28/19 09:42 08/28/19 13:00 08/28/19 13:00 08/28/19 13:00 - Laboratory Result Diagrams: 08/28/19 10:18 08/28/19 10:18 Laboratory results interpreted by me: 08/28/19 08/28/19 10:18 10:18 Hgb 13.1 L RDW 15.3 H Eos % (Auto) 8.8 H Sodium 135.1 L Chloride 97 L Glucose 209 H Discharge - Discharge Clinical Impression: Accidental overdose Qualifiers: Encounter type: initial encounter Qualified Code(s): T50.901A - Poisoning by unspecified drugs, medicaments and biological substances, accidental (unintentional), initial encounter Condition: Stable Disposition: HOME, SELF-CARE Instructions: Overdose / Ingestion ([facility]) [facility] [[facility]] - Follow up as needed
[2019-08-28 15:21] VITALS: BP 153/94
--- NOTE | 2019-08-28 20:46 | EKG REPORT ---
SEVERITY:- ABNORMAL ECG - SINUS RHYTHM PROBABLE LVH WITH SECONDARY REPOL ABNRM : Confirmed by: Michael Espinoza 28-Aug-2019 20:44:45
== END 2019-08-28 15:05 | disposition home or self-care (01) ==
LOC: ER 09:36
DX: T46.7X1A Poisoning by peripheral vasodilators, accidental (unintentional), initial encounter (principal); R42 Dizziness and giddiness; I25.10 Atherosclerotic heart disease of native coronary artery without angina pectoris; I10 Essential (primary) hypertension; E11.9 Type 2 diabetes mellitus without complications
CPT/HCPCS: 93005; 99284; 96360; 36415; 83735; 85025; 80053; 84484; 71046; 93010; J7030

== ENCOUNTER 2020-05-05 18:45 | Emergency (ER) | payer OTHER, MEDICARE ==
[2020-05-05 18:56] VITALS: BP 151/86
--- NOTE | 2020-05-05 20:40 | ER Document Report ---
ED Medical Screen (RME) - General Chief Complaint: Dizziness Stated Complaint: DIZZINESS Time Seen by Provider: 05/05/20 20:22 Primary Care Provider: [facility] [Primary Care Provider] - Follow up as needed TRAVEL OUTSIDE OF THE [place] IN LAST 30 DAYS: No - HPI Notes: 05/05/20 20:28 70-year-old male with a history of insulin-dependent diabetes, hypertension, hyperlipidemia and GERD presents to the emergency room today for substernal chest pain for the last 2 days that is been intermittent without any radiation, no shortness of breath as well as dizziness when he got up out of bed this morning, states he felt like he was "drunk". States that he got up again after he sat down and he felt dizzy once more. Patient reports this is a new finding for him. Patient was concerned so he went to his PCPs office, [facility], who recommended that he go to the emergency room for further evaluation. Denies any changes in his medications, new medications. Denies any fevers or chills. Patient states he does have an old right shoulder injury. Does not endorse a history of CVA. I have greeted and performed a rapid initial assessment of this patient. A comprehensive ED assessment and evaluation of the patient, analysis of test results and completion of the medical decision making process will be conducted by additional ED providers. PHYSICAL EXAMINATION: GENERAL: Well-appearing, well-nourished and in no acute distress. HEAD: Atraumatic, normocephalic. EYES: Pupils equal round extraocular movements intact, conjunctiva are normal. NECK: Normal range of motion CV: s1, s2 regular LUNGS: No respiratory distress Musculoskeletal: Normal range of motion NEUROLOGICAL: Normal speech, normal gait. Right upper extremity strength 4 out of 5, left upper extremity 5 out of 5, roller on the right +1, roller on the left +2 SKIN: Warm, Dry, normal turgor, no rashes or lesions noted. The patient was evaluated during a global COVID-19 pandemic and that diagnosis w as suspected/considered upon their initial presentation. Their evaluation, treatment and testing was consistent with current guidelines for patients who present with complaints or symptoms and may be related to COVID-19. - Related Data Allergies/Adverse Reactions: No Known Allergies Allergy (Verified 05/05/20 20:28) Home Medications: DM. HTN MEDS Past Medical History - Social History Frequency of alcohol use: None Drug Abuse: None - Past Medical History Cardiac Medical History: Reports: Hx Coronary Artery Disease, Hx Hypercholesterolemia, Hx Hypertension, Hx Heart Murmur Denies: Hx Heart Attack Pulmonary Medical History: Reports: Hx Bronchitis, Hx Pneumonia Denies: Hx Asthma, Hx COPD, Hx Tuberculosis Neurological Medical History: Reports: Hx Cerebrovascular Accident, Hx Migraine - neuropathy. Denies: Hx Seizures Endocrine Medical History: Reports: Hx Diabetes Mellitus Type 1, Hx Diabetes Mellitus Type 2 Renal/ Medical History: Reports: Hx Kidney Stones. Denies: Hx Peritoneal Dialysis GI Medical History: Reports: Hx Gastroesophageal Reflux Disease, Hx Ulcer Musculoskeltal Medical History: Reports Hx Arthritis Psychiatric Medical History: Reports: Hx Depression Traumatic Medical History: Reports: Hx Fractures - Jaw Past Surgical History: Reports: Hx Orthopedic Surgery - 2 back surgeries, Hx Testicular Surgery - L testicle orchidectomy, Other - ca testis 1989 S/P orchiectomy - Immunizations Immunizations up to date: Yes Hx Diphtheria, Pertussis, Tetanus Vaccination: Yes Physical Exam - Vital signs Vitals: Temp Pulse Resp BP Pulse Ox 99.1 F 88 16 151/86 H 100 05/05/20 18:54 05/05/20 18:54 05/05/20 18:54 05/05/20 18:54 05/05/20 18:54 Course - Vital Signs Vital signs: Temp Pulse Resp BP Pulse Ox 99.1 F 88 16 151/86 H 100 05/05/20 18:54 05/05/20 18:54 05/05/20 18:54 05/05/20 18:54 05/05/20 18:54 Doctor's Discharge - Discharge [facility]errals: [facility] [[facility] - Follow up as needed
[2020-05-05 20:54] LABS: ABSOLUTE EOSINOPHILS # (AUTO) 0.2 10^3/uL (0.0-0.6); ABSOLUTE LYMPHOCYTES (AUTO) 1.2 10^3/uL (0.5-4.7); ABSOLUTE MONOCYTES (AUTO) 0.5 10^3/uL (0.1-1.4); ABSOLUTE NEUT (AUTO) 2.8 10^3/uL (1.7-8.2); BASOPHILS % (AUTO) 0.4 % (0-2); EOSINOPHILS % (AUTO) 4.7 % (0-6); HEMATOCRIT 38.1 % (37.9-51.0); HEMOGLOBIN 12.5 g/dL (13.5-17.0); LYMPHOCYTES % (AUTO) 24.7 % (13-45); MEAN CORPUSCULAR HGB CONC 32.7 g/dL (32.0-36.0); MEAN CORPUSCULAR VOLUME 83 fl (80-97); MONOCYTES % (AUTO) 10.7 % (3-13); PLATELET COUNT 224 10^3/uL (150-450); RED BLOOD COUNT 4.61 10^6/uL (4.35-5.55); RED CELL DISTRIBUTION WIDTH 15.7 % (11.5-14.0); SEGMENTED NEUTROPHILS % (AUTO) 59.5 % (42-78); TOTAL CELLS COUNTED % (AUTO) 100 %; WHITE BLOOD COUNT 4.8 10^3/uL (4.0-10.5)
[2020-05-05 20:55] LABS: APPEARANCE,URINE CLEAR; BILIRUBIN,URINE NEGATIVE (NEGATIVE); COLOR,URINE YELLOW; GLUCOSE, URINE NEGATIVE (NEGATIVE); KETONES,URINE NEGATIVE (NEGATIVE); LEUKOCYTE ESTERASE,URINE NEGATIVE (NEGATIVE); NITRITE,URINE NEGATIVE (NEGATIVE); PROTEIN,URINE 100 mg/dL (NEGATIVE); URINE SPECIFIC GRAVITY 1.019; UROBILINOGEN,URINE NEGATIVE mg/dL (<2.0)
[2020-05-05 21:09] LABS: ALBUMIN 4.2 g/dL (3.5-5.0); ALKALINE PHOSPHATASE 100 U/L (38-126); ANION GAP 5 (5-19); ASPARTATE AMINO TRANSFERASE 36 U/L (17-59); BILIRUBIN,DIRECT 0.2 mg/dL (0.0-0.4); BILIRUBIN,TOTAL 0.4 mg/dL (0.2-1.3); BLOOD UREA NITROGEN 13 mg/dL (7-20); CALCIUM 9.2 mg/dL (8.4-10.2); CARBON DIOXIDE 34 mmol/L (22-30); CHLORIDE 101 mmol/L (98-107); GLUCOSE 119 mg/dL (75-110); TOTAL PROTEIN 7.5 g/dL (6.3-8.2)
--- NOTE | 2020-05-05 21:17 | RADIOLOGY REPORT (SQ) ---
EXAM DESCRIPTION: CT HEAD WITHOUT IV CONTRAST COMPLETED DATE/TME: 05/05/2020 20:50 CLINICAL HISTORY: 70 years, Male, dizziness, sudden onset COMPARISON: CT from 02/15/2015 TECHNIQUE: Axial images without IV contrast. Sagittal coronal reconstruction. Images stored on PACS. All CT scanners at this facility use dose modulation, iterative reconstruction, and/or weight based dosing when appropriate to reduce radiation dose to as low as reasonably achievable (ALARA). FINDINGS: Mild central cortical atrophy. Relatively advanced for age periventricular white matter hypodensities. Suggestive of combination of small vessel disease and old infarctions. Findings suspected increased since 2014 although differences could be due to technique. No obvious acute intra-axial or extra-axial abnormalities. Atherosclerotic disease. Mild chronic appearing sinus disease. Mastoid air cells and bony calvarium are unremarkable. IMPRESSION: 1. Atherosclerotic disease. Advanced chronic periventricular white matter hypodensities. Possibly increased since 2014. 2. No obvious acute findings.
--- NOTE | 2020-05-05 21:21 | RADIOLOGY REPORT (SQ) ---
EXAM DESCRIPTION: XR CHEST 1 VIEW COMPLETED DATE/TME: 05/05/2020 20:52 CLINICAL HISTORY: 70 years, Male, dizziness, sudden onset COMPARISON: August 28, 2019 NUMBER OF VIEWS: 1 TECHNIQUE: Single PA view of the chest was obtained at 9:00 PM LIMITATIONS: None. FINDINGS: The heart size is within normal limits. Lungs are clear aside from mild basal hypoventilatory changes. There is no evidence of pleural effusion or pneumothorax. No definite significant bony abnormality is seen. IMPRESSION: No acute abnormality as above. copyright 2010 [employer]- All Rights Reserved
--- NOTE | 2020-05-05 21:57 | EKG REPORT ---
SEVERITY:- ABNORMAL ECG - SINUS RHYTHM 82 BPM. PROBABLE LEFT VENTRICULAR HYPERTROPHY NONSPECIFIC ST-T CHANGES LATERAL WALL. : Confirmed by: Kostas Godinez MD 05-May-2020 21:56:58
== END 2020-05-06 00:25 | disposition left against medical advice (07) ==
LOC: ER 18:45
DX: R42 Dizziness and giddiness (principal); E11.9 Type 2 diabetes mellitus without complications; I10 Essential (primary) hypertension; E78.5 Hyperlipidemia, unspecified; K21.9 Gastro-esophageal reflux disease without esophagitis; I25.10 Atherosclerotic heart disease of native coronary artery without angina pectoris; E78.00 Pure hypercholesterolemia, unspecified; Z87.442 Personal history of urinary calculi
CPT/HCPCS: 36415; 70450; 71045; 80053; 81001; 82962; 84484; 85025; 93005; 93010; 99281